=== PATIENT | female | born 1985 | race Caucasian/White ===

== ENCOUNTER 2017-07-18 09:54 | Inpatient (IN) | payer MEDICARE ==
[2017-07-18 11:38] VITALS: BMI 25.8
--- NOTE | 2017-07-18 13:15 | HP ---
COWS - Scale Resting Pulse: 0= [place] 80 or Below Sweatin=Flushed/Facial Moisture Restless Observation: 1= Difficult to Sit Still Pupil Size: 0= Normal to Room Light Bone or Joint Aches: 2= Severe Diffuse Aches Runny Nose/ Eye Tearin= Runny Nose/Eyes GI Upset > 30mins: 2= Nausea/Diarrhea Tremor Observation: 2= Slight Tremor Visible Yawning Observation: 2= >3x During Session Anxiety or Irritability: 2=Irritable/Anxious Goose Flesh Skin: 3=Piloerection COWS Score: 18 CIWA Score - CIWA Score Nausea/Vomitin-Mild Nausea/No Vomiting Muscle Tremors: 4-Moderate,w/Arms Extend Anxiety: 3 Agitation: 4-Moderately Restless Paroxysmal Sweats: 3 Orientation: 0-Oriented Tacttile Disturbances: 0-None Auditory Disturbances: 0-None Visual Disturbances: 0-None Headache: 1-Very Mild CIWA-Ar Total Score: 16 Admission ROS S - HPI Chief Complaint: I am here to detox. Allergies/Adverse Reactions: Allergies Allergy/AdvReac Type Severity Reaction Status Date / Time cabbage Allergy Intermediate Itching Verified 07/18/17 11:58 No Known Drug Allergies Allergy Verified 07/18/17 11:58 History of Present Illness: pt is a 31yr old female with history of alcohol, opioid, and cocaine dependence seeking detox for treatment. pt states she also has a h/o panic attacks. Exam Limitations: No Limitations - Ebola screening Have you traveled outside of the country in the last 21 days: No Have you had contact with anyone from an Ebola affected area: No Have you been sick,other than usual withdrawal symptoms: No Do you have a fever: No - Review of Systems Constitutional: Chills, Diaphoresis, Loss of Appetite, Night Sweats EENT: reports: No Symptoms Reported Respiratory: reports: No Symptoms reported Cardiac: reports: No Symptoms Reported GI: reports: Nausea, Poor Appetite, Poor Fluid Intake, Vomiting : reports: No Symptoms Reported Musculoskeletal: reports: Muscle Pain Integumentary: reports: Flushing, Sweating, Other (harden abscess no s/s infection. Pt coved her track marking with tatoos.) Neuro: reports: Tingling, Tremors Endocrine: reports: Excessive Sweating, Flushing, Intolerance to Cold, Intolerance to Heat Hematology: reports: No Symptoms Reported Psychiatric: reports: No Sypmtoms Reported, Judgement Intact, Mood/Affect Appropiate, Orientated x3, Agitated, Anxious Other Systems: Reviewed and Negative Patient History - Patient Medical History Hx Anemia: No Hx Asthma: No Hx Chronic Obstructive Pulmonary Disease (COPD): No Hx Cancer: No Hx Cardiac Disorders: No Hx Congestive Heart Failure: No Hx Hypertension: No Hx Hypercholesterolemia: No Hx Pacemaker: No HX Cerebrovascular Accident: No Hx Seizures: No Hx Dementia: No Hx Diabetes: No Hx Gastrointestinal Disorders: No Hx Liver Disease: No Hx Genitourinary Disorders: No Hx Sexually Transmitted Disorders: No Hx Renal Disease (ESRD): No Hx Thyroid Disease: No Hx Human Immunodeficiency Virus (HIV): No (negative) Hx Hepatitis C: No (negative) Hx Depression: No Hx Suicide Attempt: No (denies) Hx Bipolar Disorder: No Hx Schizophrenia: No Other Medical History: h/o panic attacks/anxiety - Patient Surgical History Past Surgical History: Yes Hx Abdominal Surgery: Yes (LIPOSUCTION IN 2007) - PPD History Previous Implant?: Yes Documented Results: Negative w/o proof Implanted On Prior R Admission?: No PPD to be Administered?: Yes - Reproductive History Patient : No - Smoking Cessation Smoking history: Never smoked - Substance & Tx. History Hx Alcohol Use: Yes Hx Substance Use: Yes Substance Use Type: Alcohol, Cocaine, Heroin Hx Substance Use Treatment: No - Substances Abused Heroin Route: Injection Frequency: Daily Amount used: 20 BAGS Age of first use: 31 Date of Last Use: 07/17/17 Cocaine Route: Injection Frequency: Daily Amount used: $40 Age of first use: 21 Date of Last Use: 07/17/17 Alcohol Route: Oral Frequency: Daily Amount used: 2 GLASSES VODKA Age of first use: 14 Date of Last Use: 07/18/17 Family Disease History - Family Disease History Family History: Denies Admission Physical Exam BHS - Vital Signs Vital Signs: Vital Signs - 24 hr 07/18/17 11:32 Temperature 95.7 F L Pulse Rate 86 Respiratory 20 Rate Blood Pressure 117/76 - Physical General Appearance: Yes: Appropriately Dressed, Moderate Distress, Intoxicated, Tremorous, Irritable, Sweating, Anxious HEENTM: Yes: Hearing grossly Normal, Normal Voice, Rhinorrhea Respiratory: Yes: Lungs Clear, Normal Breath Sounds, No Respiratory Distress Neck: Yes: No masses,lesions,Nodules Breast: Yes: Within Normal Limits Cardiology: Yes: Regular Rhythm, Regular Rate, S1, S2 Abdominal: Yes: Normal Bowel Sounds, Non Tender, Soft Genitourinary: Yes: Within Normal Limits Back: Yes: Normal Inspection Musculoskeletal: Yes: full range of Motion Extremities: Yes: Normal Capillary Refill, Normal Inspection, Tremors Neurological: Yes: Fully Oriented, Alert, Normal Response Integumentary: Yes: Normal Color, Diaphoresis, Track Diego Lymphatic: Yes: Within Normal Limits - Diagnostic (1) Urinary tract infection Current Visit: Yes Status: Acute Qualifiers: Urinary tract infection type: acute cystitis Hematuria presence: without hematuria Qualified Code(s): N30.00 - Acute cystitis without hematuria (2) Alcohol dependence with uncomplicated withdrawal Current Visit: Yes Status: Chronic (3) Opioid dependence with withdrawal Current Visit: Yes Status: Chronic (4) Panic attack Current Visit: No Status: Suspected Cleared for Admission [facility] - Detox or Rehab [facility] Level of Care: Medically Managed Detox Regimen/Protocol: Methadone/Valium [facility] Breath Alcohol Content Breath Alcohol Content: 0 Urine Drug Screen - Results Drug Screen Negative: No Urine Drug Screen Results: MAME-Cocaine, OPI-Opiates
[2017-07-18] MEDS ORDERED: IBUPROFEN 400 MG TABLET (FP) PO PRN (13:47)
[2017-07-18] MEDS ORDERED: MAGNESIUM HYDROX 2400MG/30ML ORAL SUSPENSION 30 ML CUP PO PRN (13:47)
[2017-07-18] MEDS ORDERED: guaiFENesin/D-METHORPHAN HB 10 ML UNIT-DOSE CUPS PO PRN (13:47)
[2017-07-18] MEDS ORDERED: MAG HYDROX/AL HYDROX/SIMETH 30 ML UNIT-DOSE CUP PO PRN (13:47)
[2017-07-18] MEDS ORDERED: ACETAMINOPHEN 325 MG TABLET (FP) PO PRN (13:47)
[2017-07-18] MEDS ORDERED: diphenhydrAMINE HCL 50 MG CAPSULE PO PRN (13:47)
[2017-07-18] MEDS ORDERED: MENTHOL/PHENOL 1 EACH UD MM PRN (13:47)
[2017-07-18] MEDS ORDERED: MAGNESIUM CITRATE 300 ML BOTTLE PO PRN (13:47)
[2017-07-18] MEDS ORDERED: LOPERAMIDE HCL 2 MG CAPSULE PO PRN (13:47)
[2017-07-18] MEDS ORDERED: P-EPHED 60MG/TRIPROLIDI 2.5MG TABLET PO PRN (13:47)
[2017-07-18] MEDS ORDERED: diazePAM 5 MG TABLET PO ONE (13:59)
[2017-07-18] MEDS ORDERED: METHADONE HCL 10 MG TABLET (FOR DETOX USE ONLY) PO ONE ×2 (14:01→23:00)
[2017-07-18] MEDS: diazePAM 5 MG TABLET PO SCH ×2 (15:20→22:11)
[2017-07-18 17:18] LABS: MCH 28.2 pg (25.7-33.7); MCHC 33.1 g/dl (32.0-36.0); MEAN CELL VOLUME 85.3 fl (80-96); MEAN PLT VOLUME 9.8 fl (7.5-11.1); PLATELET COUNT 328 K/MM3 (134-434); RDW 16.1 % (11.6-15.6); WHITE BLOOD COUNT 12.5 K/mm3 (4.0-10.0)
[2017-07-18 17:25] LABS: PH,URINE 6.5 (5.0-8.0); URINE APPEARANCE CLEAR; URINE BILIRUBIN NEGATIVE (NEGATIVE); URINE BLOOD NEGATIVE (NEGATIVE); URINE COLOR LT. YELLOW; URINE GLUCOSE (UA) NEGATIVE (NEGATIVE); URINE KETONE NEGATIVE (NEGATIVE); URINE LEUK ESTERASE NEGATIVE (NEGATIVE); URINE NITRITE NEGATIVE (NEGATIVE); URINE PROTEIN TRACE (NEGATIVE); URINE UROBILINOGEN 0.2 mg/dL (0.2-1.0)
[2017-07-18 17:40] LABS: ALK PHOS 58 U/L (45-117); ANION GAP 9 (8-16); BILIRUBIN,TOTAL 0.4 mg/dL (0.2-1.0); CALCIUM 9.3 mg/dL (8.5-10.1); CO2 26 mmol/L (21-32); CREATININE 0.8 mg/dL (0.55-1.02); GLUCOSE,RANDOM 109 mg/dL (74-106); SGOT/AST 13 U/L (15-37); SGPT/ALT 19 U/L (12-78); TOT PROT 7.5 g/dl (6.4-8.2)
[2017-07-18] MEDS: THIAMINE HCL 100 MG TABLET (FP) PO SCH (22:10)
[2017-07-18] MEDS: diazePAM 5 MG TABLET PO PRN (22:11)
[2017-07-19] MEDS: diazePAM 5 MG TABLET PO SCH ×3 (05:38→22:04)
[2017-07-19] MEDS ORDERED: ONDANSETRON *ODT* 4 MG TABLET SL PRN (08:55)
[2017-07-19] MEDS: hydrOXYzine PAMOATE 50 MG CAPSULE (FP) PO PRN ×3 (09:50→22:03)
[2017-07-19] MEDS: PRENATAL VITAMINS W/ FOLIC ACID TABLET (FP) PO SCH (09:50)
[2017-07-19] MEDS ORDERED: METHADONE HCL 10 MG TABLET (FOR DETOX USE ONLY) PO SCH (10:00)
--- NOTE | 2017-07-19 10:32 | EKG ---
Test Reason : Blood Pressure : / mmHG Vent. Rate : 086 BPM Atrial Rate : 086 BPM P-R Int : 146 ms QRS Dur : 084 ms QT Int : 428 ms P-R-T Axes : 051 060 052 degrees QTc Int : 512 ms NORMAL SINUS RHYTHM PROLONGED QT ABNORMAL ECG NO PREVIOUS ECGS AVAILABLE Confirmed by ALECIA SANDRA MD ([id number]) on 07/19/2017 10:32:05 AM Referred By: Confirmed By:ALEICA SANDRA MD
--- NOTE | 2017-07-19 11:44 | PN ---
[facility] CIWA - CIWA Score Nausea/Vomitin-No Nausea/No Vomiting Muscle Tremors: 4-Moderate,w/Arms Extend Anxiety: 4-Mod. Anxious/Guarded Agitation: 4-Moderately Restless Paroxysmal Sweats: 3 Orientation: 0-Oriented Tacttile Disturbances: 0-None Auditory Disturbances: 0-None Visual Disturbances: 0-None Headache: 0-None Present CIWA-Ar Total Score: 15 S COWS - Scale Resting Pulse: 1= [place] 81-100 Sweatin=Flushed/Facial Moisture Restless Observation: 1= Difficult to Sit Still Pupil Size: 0= Normal to Room Light Bone or Joint Aches: 2= Severe Diffuse Aches Runny Nose/ Eye Tearin= Runny Nose/Eyes GI Upset > 30mins: 1= Stomach Cramp Tremor Observation of Outstretched Hands: 2= Slight Tremor Visible Yawning Observation: 2= >3x During Session Anxiety or Irritability: 2=Irritable/Anxious Goose Flesh Skin: 3=Piloerection COWS Score: 18 [facility] Progress Note (SOAP) Subjective: irritable agitation sweats chills body aches restless I have a UTI Objective: 07/19/17 11:43 Vital Signs Temperature 97.7 F 07/19/17 10:00 Pulse Rate 88 07/19/17 10:00 Respiratory Rate 18 07/19/17 10:00 Blood Pressure 135/95 07/19/17 10:00 O2 Sat by Pulse Oximetry (%) Laboratory Tests 07/18/17 07/18/17 07/18/17 14:00 14:00 14:00 WBC 12.5 H RBC 3.77 Hgb 10.6 L D Hct 32.2 L D MCV 85.3 MCH 28.2 MCHC 33.1 RDW 16.1 H D Plt Count 328 MPV 9.8 Sodium 138 Potassium 3.7 Chloride 103 Carbon Dioxide 26 Anion Gap 9 BUN 17 D Creatinine 0.8 Creat Clearance w eGFR > 60 Random Glucose 109 H D Calcium 9.3 Total Bilirubin 0.4 AST 13 L D ALT 19 D Alkaline Phosphatase 58 Total Protein 7.5 Albumin 4.0 Urine Color Lt. yellow Urine Appearance Clear Urine pH 6.5 D Ur Specific [place] >= 1.030 H Urine Protein Trace H Urine Glucose (UA) Negative Urine Ketones Negative Urine Blood Negative Urine Nitrite Negative Urine Bilirubin Negative Urine Urobilinogen 0.2 Ur Leukocyte Esterase Negative RPR Titer 07/18/17 14:00 WBC RBC Hgb Hct MCV MCH MCHC RDW Plt Count MPV Sodium Potassium Chloride Carbon Dioxide Anion Gap BUN Creatinine Creat Clearance w eGFR Random Glucose Calcium Total Bilirubin AST ALT Alkaline Phosphatase Total Protein Albumin Urine Color Urine Appearance Urine pH Ur Specific [place] Urine Protein Urine Glucose (UA) Urine Ketones Urine Blood Urine Nitrite Urine Bilirubin Urine Urobilinogen Ur Leukocyte Esterase RPR Titer Nonreactive awake/alert lying in bed no acute distress Assessment: 07/19/17 11:44 withdrawal sx Plan: continue detox increase fluids bactrim ds q daily x 7 days for uti
[2017-07-19] MEDS: SULFAMETHOXAZOLE/TRIMETHOPRIM 800MG/160MG D.S. TABLET PO SCH (13:10)
--- NOTE | 2017-07-19 14:04 | CONSULT ---
[facility] Psychiatric Consult - Data Date of interview: 07/19/17 Admission source: [facility] Identifying data: Patient is approached at bedside for psychiatric interview.She refused.Nursing staff is made aware.
--- NOTE | 2017-07-19 15:20 | PN ---
S Progress Note Note: pt refused to complete detox; pt states I am not ready and need to leave now. Pt insisted to leave and signed out AMA.
--- NOTE | 2017-07-19 15:21 | DS ---
[facility] Detox Discharge Summary Admission Date: 07/18/17 - History Present History: Alcohol Dependence, Opioid Dependence - Physical Exam Results Vital Signs: Vital Signs Temperature 97.9 F 07/19/17 14:23 Pulse Rate 87 07/19/17 14:23 Respiratory Rate 20 07/19/17 14:23 Blood Pressure 107/54 07/19/17 14:23 O2 Sat by Pulse Oximetry (%) - Treatment Hospital Course: Discharged Condition Good - Medication Discharge Medications: Ambulatory Orders NK [No Known Home Medication] 07/18/17 - Diagnosis (1) Urinary tract infection Current Visit: Yes Status: Acute Qualifiers: Urinary tract infection type: acute cystitis Hematuria presence: without hematuria Qualified Code(s): N30.00 - Acute cystitis without hematuria (2) Alcohol dependence with uncomplicated withdrawal Current Visit: Yes Status: Chronic (3) Opioid dependence with withdrawal Current Visit: Yes Status: Chronic (4) Panic attack Current Visit: No Status: Suspected - AMA Did Patient Leave Against Medical Advice: Yes (I want to go home.)
[2017-07-19] MEDS ORDERED: CYCLOBENZAPRINE HCL 10 MG TABLET (FP) PO PRN (15:54)
[2017-07-19] MEDS ORDERED: IBUPROFEN 400 MG TABLET (FP) PO PRN (15:54)
[2017-07-19] MEDS: diazePAM 5 MG TABLET PO PRN (22:04)
[2017-07-19] MEDS: THIAMINE HCL 100 MG TABLET (FP) PO SCH (22:04)
[2017-07-20] MEDS: SULFAMETHOXAZOLE/TRIMETHOPRIM 800MG/160MG D.S. TABLET PO SCH (09:12)
[2017-07-20] MEDS: PRENATAL VITAMINS W/ FOLIC ACID TABLET (FP) PO SCH (09:12)
--- NOTE | 2017-07-20 09:23 | PN ---
S CIWA - CIWA Score Nausea/Vomitin Muscle Tremors: 3 Anxiety: 2 Agitation: 2 Paroxysmal Sweats: 1-Minimal Palms Moist Orientation: 0-Oriented Tacttile Disturbances: 1-Very Mild Itch/Numbness Auditory Disturbances: 1-Very Mild Visual Disturbances: 1-Very Mild Sensitivity Headache: 2-Mild CIWA-Ar Total Score: 16 BHS COWS - Scale Resting Pulse: 1= [place] 81-100 Sweatin= Chills/Flushing Restless Observation: 3= Extraneous Movement Pupil Size: 1= Pupils >than Normal Bone or Joint Aches: 2= Severe Diffuse Aches Runny Nose/ Eye Tearin= Runny Nose/Eyes GI Upset > 30mins: 2= Nausea/Diarrhea Tremor Observation of Outstretched Hands: 2= Slight Tremor Visible Yawning Observation: 1= 1-2x During Session Anxiety or Irritability: 2=Irritable/Anxious Goose Flesh Skin: 0=Smooth Skin COWS Score: 17 S Progress Note (SOAP) Subjective: ALERT,IRRITABLE,ANXIOUS,INTERRUPTED SLEEP,PAIN IN THE BODY AND BACK Objective: 07/20/17 09:22 Vital Signs Temperature 97.9 F 07/20/17 06:55 Pulse Rate 84 07/20/17 06:55 Respiratory Rate 18 07/20/17 06:55 Blood Pressure 114/64 07/20/17 06:55 O2 Sat by Pulse Oximetry (%) Laboratory Last Values WBC 12.5 K/mm3 (4.0-10.0) H 07/18/17 14:00 RBC 3.77 M/mm3 (3.60-5.2) 07/18/17 14:00 Hgb 10.6 GM/dL (10.7-15.3) L D 07/18/17 14:00 Hct 32.2 % (32.4-45.2) L D 07/18/17 14:00 MCV 85.3 fl (80-96) 07/18/17 14:00 MCH 28.2 pg (25.7-33.7) 07/18/17 14:00 MCHC 33.1 g/dl (32.0-36.0) 07/18/17 14:00 RDW 16.1 % (11.6-15.6) H D 07/18/17 14:00 Plt Count 328 K/MM3 (134-434) 07/18/17 14:00 MPV 9.8 fl (7.5-11.1) 07/18/17 14:00 Sodium 138 mmol/L (136-145) 07/18/17 14:00 Potassium 3.7 mmol/L (3.5-5.1) 07/18/17 14:00 Chloride 103 mmol/L (98-107) 07/18/17 14:00 Carbon Dioxide 26 mmol/L (21-32) 07/18/17 14:00 Anion Gap 9 (8-16) 07/18/17 14:00 BUN 17 mg/dL (7-18) D 07/18/17 14:00 Creatinine 0.8 mg/dL (0.55-1.02) 07/18/17 14:00 Creat Clearance w eGFR > 60 (>60) 07/18/17 14:00 Random Glucose 109 mg/dL (74-106) H D 07/18/17 14:00 Calcium 9.3 mg/dL (8.5-10.1) 07/18/17 14:00 Total Bilirubin 0.4 mg/dL (0.2-1.0) 07/18/17 14:00 AST 13 U/L (15-37) L D 07/18/17 14:00 ALT 19 U/L (12-78) D 07/18/17 14:00 Alkaline Phosphatase 58 U/L (45-117) 07/18/17 14:00 Total Protein 7.5 g/dl (6.4-8.2) 07/18/17 14:00 Albumin 4.0 g/dl (3.4-5.0) 07/18/17 14:00 Urine Color Lt. yellow 07/18/17 14:00 Urine Appearance Clear 07/18/17 14:00 Urine pH 6.5 (5.0-8.0) D 07/18/17 14:00 Ur Specific [place] >= 1.030 (1.005-1.025) H 07/18/17 14:00 Urine Protein Trace (NEGATIVE) H 07/18/17 14:00 Urine Glucose (UA) Negative (NEGATIVE) 07/18/17 14:00 Urine Ketones Negative (NEGATIVE) 07/18/17 14:00 Urine Blood Negative (NEGATIVE) 07/18/17 14:00 Urine Nitrite Negative (NEGATIVE) 07/18/17 14:00 Urine Bilirubin Negative (NEGATIVE) 07/18/17 14:00 Urine Urobilinogen 0.2 mg/dL (0.2-1.0) 07/18/17 14:00 Ur Leukocyte Esterase Negative (NEGATIVE) 07/18/17 14:00 RPR Titer Nonreactive (NONREACTIVE) 07/18/17 14:00 Assessment: 07/20/17 09:23 WITHDRAWAL SYMPTOM Plan: CONTINUE DETOX
--- NOTE | 2017-07-20 09:26 | PN ---
S Progress Note Note: PATIENT DID NOT WANT TO COMPLETE TREATMENT,SEEN BY COUNSELOR,SIGNED RELEASE AMA
--- NOTE | 2017-07-20 09:32 | DS ---
[facility] Detox Discharge Summary Admission Date: 07/18/17 Discharge Date: 07/20/17 - History Present History: Alcohol Dependence, Cocaine Dependence, Opioid Dependence Additional Comments: PATIENT DID NOT WANT TO COMPLETE TREATMENT,SIGNED RELEASE AMA,SEEN BY COUNSELOR Pertinent Past History: UTI PANIC ATTACK - Physical Exam Results Vital Signs: Vital Signs Temperature 97.9 F 07/20/17 06:55 Pulse Rate 84 07/20/17 06:55 Respiratory Rate 18 07/20/17 06:55 Blood Pressure 114/64 07/20/17 06:55 O2 Sat by Pulse Oximetry (%) Pertinent Admission Physical Exam Findings: WITHDRAWAL SYMPTOM - Medication Discharge Medications: Ambulatory Orders Sulfamethoxazole/Trimethoprim [Bactrim DS -] 1 each PO DAILY #7 tablet 07/19/17 - Diagnosis (1) Opioid dependence with withdrawal Current Visit: Yes Status: Chronic (2) Urinary tract infection Current Visit: Yes Status: Acute Qualifiers: Urinary tract infection type: acute cystitis Hematuria presence: without hematuria Qualified Code(s): N30.00 - Acute cystitis without hematuria (3) Alcohol dependence with uncomplicated withdrawal Current Visit: Yes Status: Chronic (4) Panic attack Current Visit: No Status: Suspected - AMA Did Patient Leave Against Medical Advice: Yes
[2017-07-20 09:59] VITALS: BP 145/78; PULSE 95; TEMP 98.2
[2017-07-20] MEDS ORDERED: diazePAM 5 MG TABLET PO SCH (10:00)
[2017-07-20] MEDS ORDERED: METHADONE HCL 5 MG TABLET (FOR DETOX USE ONLY) PO SCH (10:00)
[2017-07-22] MEDS ORDERED: diazePAM 5 MG TABLET PO SCH (10:00)
[2017-07-22] MEDS ORDERED: METHADONE HCL 10 MG TABLET (FOR DETOX USE ONLY) PO SCH (10:00)
[2017-07-23] MEDS ORDERED: METHADONE HCL 5 MG TABLET (FOR DETOX USE ONLY) PO SCH (06:00)
== END 2017-07-20 09:17 | disposition left against medical advice (07) | DRG 770 ==
LOC: YASAS 09:54 → Y6N 13:50
PROVIDERS: ADMIT Internal Medicine; ATTEND Internal Medicine
PROC: HZ2ZZZZ Detoxification Services for Substance Abuse Treatment (ICD-10-PCS; principal; 2017-07-18)
DX: F11.23 Opioid dependence with withdrawal (principal); F10.230 Alcohol dependence with withdrawal, uncomplicated; F41.0 Panic disorder [episodic paroxysmal anxiety]; N30.00 Acute cystitis without hematuria; Z91.018 Allergy to other foods
CPT/HCPCS: 36415; 80053; 81003; 85027; 86593; 93005; 93010

== ENCOUNTER 2017-11-19 10:29 | Inpatient (IN) | payer SELFPAY ==
[2017-11-19 11:45] VITALS: BMI 23.3
--- NOTE | 2017-11-19 14:54 | HP ---
COWS - Scale Resting Pulse: 2= [place] 101-120 Sweatin=Flushed/Facial Moisture Restless Observation: 1= Difficult to Sit Still Pupil Size: 0= Normal to Room Light Bone or Joint Aches: 2= Severe Diffuse Aches Runny Nose/ Eye Tearin= Runny Nose/Eyes GI Upset > 30mins: 2= Nausea/Diarrhea Tremor Observation: 2= Slight Tremor Visible Yawning Observation: 2= >3x During Session Anxiety or Irritability: 2=Irritable/Anxious Goose Flesh Skin: 3=Piloerection COWS Score: 20 CIWA Score - CIWA Score Nausea/Vomitin-Mild Nausea/No Vomiting Muscle Tremors: 4-Moderate,w/Arms Extend Anxiety: 4-Mod. Anxious/Guarded Agitation: 4-Moderately Restless Paroxysmal Sweats: 3 Orientation: 0-Oriented Tacttile Disturbances: 0-None Auditory Disturbances: 0-None Visual Disturbances: 0-None Headache: 2-Mild CIWA-Ar Total Score: 18 Admission ROS BHS - HPI Chief Complaint: I am here for detox and hopefully for rehab. Allergies/Adverse Reactions: Allergies Allergy/AdvReac Type Severity Reaction Status Date / Time cabbage Allergy Intermediate Itching Verified 11/19/17 12:47 peanut Allergy Intermediate Swelling Verified 11/19/17 12:47 No Known Drug Allergies Allergy Verified 07/18/17 11:58 History of Present Illness: Pt is a 31yr old female with a history of alcohol and heroin dependence seeking detox for treatment. Exam Limitations: No Limitations - Ebola screening Have you traveled outside of the country in the last 21 days: No Have you had contact with anyone from an Ebola affected area: No Have you been sick,other than usual withdrawal symptoms: No - Review of Systems Constitutional: Chills, Diaphoresis, Night Sweats, Changes in sleep, Unintentional Wgt. Loss EENT: reports: Tearing, Nose Congestion Respiratory: reports: No Symptoms reported Cardiac: reports: No Symptoms Reported, Lightheadedness GI: reports: Constipated, Poor Fluid Intake, Indigestion : reports: No Symptoms Reported Musculoskeletal: reports: Back Pain, Joint Pain, Muscle Pain Integumentary: reports: Flushing, Sweating Neuro: reports: Tingling, Tremors Endocrine: reports: Intolerance to Heat, Increased Hunger Hematology: reports: No Symptoms Reported Psychiatric: reports: Judgement Intact, Mood/Affect Appropiate, Orientated x3, Agitated, Anxious Other Systems: Reviewed and Negative Patient History - Patient Medical History Hx Anemia: No Hx Asthma: No Hx Chronic Obstructive Pulmonary Disease (COPD): No Hx Cancer: No Hx Cardiac Disorders: No Hx Congestive Heart Failure: No Hx Hypertension: No Hx Hypercholesterolemia: No Hx Pacemaker: No HX Cerebrovascular Accident: No Hx Seizures: No Hx Dementia: No Hx Diabetes: No Hx Gastrointestinal Disorders: Yes (ACID REFLUX) Hx Liver Disease: No Hx Genitourinary Disorders: No Hx Sexually Transmitted Disorders: No Hx Renal Disease (ESRD): No Hx Thyroid Disease: No Hx Human Immunodeficiency Virus (HIV): No (negative) Hx Hepatitis C: No (negative) Hx Depression: Yes Hx Suicide Attempt: No Hx Bipolar Disorder: No Hx Schizophrenia: No - Patient Surgical History Past Surgical History: Yes Hx Abdominal Surgery: Yes (LIPOSUCTION IN 2004 AND 2007) - PPD History Previous Implant?: Yes Documented Results: Negative w/o proof Implanted On Prior [facility] Admission?: Yes PPD to be Administered?: Yes - Reproductive History Patient is a Female of Child Bearing Age (11 -55 yrs old): Yes Last Menstrual Period: 06/12/17 Patient : No - Smoking Cessation Smoking history: Never smoked - Substance & Tx. History Hx Alcohol Use: Yes Hx Substance Use: Yes Substance Use Type: Alcohol, Cocaine, Heroin, Opiates Hx Substance Use Treatment: No - Substances Abused Heroin Route: Injection Frequency: Daily Amount used: 20 BAGS Age of first use: 30 Date of Last Use: 11/18/17 Cocaine Route: Injection Frequency: Daily Amount used: $40 Age of first use: 18 Date of Last Use: 11/18/17 Alcohol Route: Oral Frequency: Daily Amount used: 2-3 GLASSES Age of first use: 18 Date of Last Use: 11/19/17 Alprazolam (Xanax) Route: Oral Frequency: 1-3 times last 30 days Amount used: 4MG Age of first use: 14 Date of Last Use: 11/17/17 Family Disease History - Family Disease History Family History: Denies Admission Physical Exam BHS - Vital Signs Vital Signs: Vital Signs - 24 hr 11/19/17 11:43 Temperature 98.1 F Pulse Rate 107 H Respiratory 18 Rate Blood Pressure 137/86 - Physical General Appearance: Yes: Appropriately Dressed, Moderate Distress, Tremorous, Irritable, Sweating, Anxious HEENTM: Yes: Hearing grossly Normal, Normal Voice, Nasal Congestion, Rhinorrhea Respiratory: Yes: Lungs Clear, Normal Breath Sounds, No Respiratory Distress Neck: Yes: No masses,lesions,Nodules Breast: Yes: Within Normal Limits Cardiology: Yes: Regular Rhythm, Regular Rate, S1, S2 Abdominal: Yes: Normal Bowel Sounds, Non Tender, Soft Genitourinary: Yes: Within Normal Limits Back: Yes: Normal Inspection Musculoskeletal: Yes: Back pain, Muscle Pain Extremities: Yes: Normal Capillary Refill, Normal Inspection, Non-Tender, Tremors Neurological: Yes: Fully Oriented, Alert, Normal Response Integumentary: Yes: Normal Color, Diaphoresis, Track Diego Lymphatic: Yes: Within Normal Limits - Diagnostic (1) Constipation Current Visit: No Status: Chronic Qualifiers: Constipation type: unspecified constipation type Qualified Code(s): K59.00 - Constipation, unspecified (2) Urinary tract infection Current Visit: No Status: Chronic Qualifiers: Encounter type: initial encounter (3) Alcohol dependence with uncomplicated withdrawal Current Visit: Yes Status: Chronic (4) Opioid dependence with withdrawal Current Visit: Yes Status: Chronic (5) Panic attack Current Visit: No Status: Suspected Cleared for Admission [facility] - Detox or Rehab [facility] Level of Care: Medically Managed Detox Regimen/Protocol: Methadone/Valium [facility] Breath Alcohol Content Breath Alcohol Content: 0.070 Urine Pregancy Test - Result Urine Test Results: Negative- NO Line Present Urine Drug Screen - Results Drug Screen Negative: No Urine Drug Screen Results: MAME-Cocaine, OPI-Opiates, BZO-Benzodiazepines, TCA- Tricyclic Antidepress, OXY-Oxycodone
[2017-11-19] MEDS ORDERED: MAG HYDROX/AL HYDROX/SIMETH 30 ML UNIT-DOSE CUP PO PRN (15:03)
[2017-11-19] MEDS ORDERED: MAGNESIUM HYDROX 2400MG/30ML ORAL SUSPENSION 30 ML CUP PO PRN (15:03)
[2017-11-19] MEDS ORDERED: guaiFENesin/D-METHORPHAN HB 10 ML UNIT-DOSE CUPS PO PRN (15:03)
[2017-11-19] MEDS ORDERED: ACETAMINOPHEN 325 MG TABLET (FP) PO PRN (15:03)
[2017-11-19] MEDS ORDERED: P-EPHED 60MG/TRIPROLIDI 2.5MG TABLET PO PRN (15:03)
[2017-11-19] MEDS ORDERED: MAGNESIUM CITRATE 300 ML BOTTLE PO PRN (15:03)
[2017-11-19] MEDS ORDERED: MENTHOL/PHENOL 1 EACH UD MM PRN (15:03)
[2017-11-19] MEDS ORDERED: NICOTINE POLACRILEX 4 MG GUM BC PRN (15:03)
[2017-11-19] MEDS ORDERED: LOPERAMIDE HCL 2 MG CAPSULE PO PRN (15:03)
[2017-11-19] MEDS ORDERED: IBUPROFEN 400 MG TABLET (FP) PO PRN (15:03)
[2017-11-19] MEDS ORDERED: hydrOXYzine PAMOATE 50 MG CAPSULE (FP) PO PRN (15:03)
[2017-11-19] MEDS ORDERED: diazePAM 5 MG TABLET PO ONE (15:30)
[2017-11-19] MEDS ORDERED: METHADONE HCL 10 MG TABLET (FOR DETOX USE ONLY) PO ONE ×2 (15:30→23:00)
[2017-11-19] MEDS ORDERED: cloNIDine HCL 0.1 MG TABLET PO ONE (16:15)
[2017-11-19] MEDS ORDERED: METHADONE HCL 10 MG TABLET (FOR DETOX USE ONLY) ONE (17:55)
[2017-11-19 19:15] LABS: URINE APPEARANCE CLOUDY; URINE BILIRUBIN NEGATIVE (NEGATIVE); URINE BLOOD NEGATIVE (NEGATIVE); URINE COLOR DKYELLOW; URINE GLUCOSE (UA) NEGATIVE (NEGATIVE); URINE KETONE NEGATIVE (NEGATIVE); URINE NITRITE NEGATIVE (NEGATIVE); URINE UROBILINOGEN 4.0 E.U/dl mg/dL (0.2-1.0)
[2017-11-19 19:53] LABS: URINE LEUK ESTERASE 1+ (NEGATIVE); URINE PROTEIN 1+ (NEGATIVE)
[2017-11-19 21:39] LABS: URINE BACTERIA RARE /hpf (NONE SEEN); URINE MUCUS FEW; URINE RBC 5 /hpf (0-3); URINE WBC 7 /hpf (3-5)
[2017-11-19] MEDS: cloNIDine HCL 0.1 MG TABLET PO SCH (22:17)
[2017-11-19] MEDS: diazePAM 5 MG TABLET PO SCH (22:17)
[2017-11-19] MEDS: THIAMINE HCL 100 MG TABLET (FP) PO SCH (22:17)
[2017-11-19] MEDS: SULFAMETHOXAZOLE/TRIMETHOPRIM 800MG/160MG D.S. TABLET PO SCH (22:17)
[2017-11-19] MEDS: BACITRACIN 0.9 GM PACKET TP SCH (22:17)
[2017-11-19] MEDS: CYCLOBENZAPRINE HCL 10 MG TABLET (FP) PO PRN (22:17)
[2017-11-19 22:55] LABS: URINE LEUK ESTERASE Negative (NEGATIVE)
[2017-11-20] MEDS: diazePAM 5 MG TABLET PO SCH ×3 (06:33→22:31)
[2017-11-20] MEDS ORDERED: PRENATAL VITAMINS W/ FOLIC ACID TABLET (FP) PO SCH (10:00)
[2017-11-20] MEDS ORDERED: NICOTINE 21 MG/24 HOURS TOPICAL PATCH TD SCH (10:00)
[2017-11-20] MEDS ORDERED: METHADONE HCL 10 MG TABLET (FOR DETOX USE ONLY) PO SCH (10:00)
[2017-11-20 10:07] LABS: MCH 23.1 pg (25.7-33.7); MCHC 30.1 g/dl (32.0-36.0); MEAN CELL VOLUME 76.5 fl (80-96); MEAN PLT VOLUME 10.1 fl (7.5-11.1); PLATELET COUNT 368 K/MM3 (134-434); RDW 16.5 % (11.6-15.6); WHITE BLOOD COUNT 9.3 K/mm3 (4.0-10.0)
--- NOTE | 2017-11-20 10:08 | EKG ---
Test Reason : Blood Pressure : / mmHG Vent. Rate : 088 BPM Atrial Rate : 088 BPM P-R Int : 158 ms QRS Dur : 082 ms QT Int : 398 ms P-R-T Axes : 051 056 040 degrees QTc Int : 481 ms NORMAL SINUS RHYTHM POSSIBLE ANTERIOR INFARCT , AGE UNDETERMINED ABNORMAL ECG WHEN COMPARED WITH ECG OF 18-JUL-2017 14:24, NO SIGNIFICANT CHANGE WAS FOUND Confirmed by JENNIFER RUDD MD ([id number]) on 11/20/2017 10:08:31 AM Referred By: Confirmed By:JENNIFER RUDD MD
[2017-11-20 10:34] LABS: ALBUMIN 3.7 g/dl (3.4-5.0); ALK PHOS 104 U/L (45-117); ANION GAP 10 (8-16); BILIRUBIN,TOTAL 0.5 mg/dL (0.2-1.0); CALCIUM 8.8 mg/dL (8.5-10.1); CO2 25 mmol/L (21-32); GLUCOSE,RANDOM 98 mg/dL (74-106); SGPT/ALT 335 U/L (12-78); TOT PROT 8.3 g/dl (6.4-8.2)
[2017-11-20] MEDS: cloNIDine HCL 0.1 MG TABLET PO SCH ×2 (10:46→22:30)
[2017-11-20] MEDS: SULFAMETHOXAZOLE/TRIMETHOPRIM 800MG/160MG D.S. TABLET PO SCH ×2 (10:46→22:25)
[2017-11-20] MEDS: BACITRACIN 0.9 GM PACKET TP SCH ×2 (10:46→22:25)
[2017-11-20] MEDS: diazePAM 5 MG TABLET PO PRN (10:46)
--- NOTE | 2017-11-20 10:52 | PN ---
[facility] CIWA - CIWA Score Nausea/Vomitin-No Nausea/No Vomiting Muscle Tremors: 4-Moderate,w/Arms Extend Anxiety: 3 Agitation: 3 Paroxysmal Sweats: 3 Orientation: 0-Oriented Tacttile Disturbances: 0-None Auditory Disturbances: 0-None Visual Disturbances: 0-None Headache: 1-Very Mild CIWA-Ar Total Score: 14 S COWS - Scale Resting Pulse: 0= [place] 80 or Below Sweatin=Flushed/Facial Moisture Restless Observation: 1= Difficult to Sit Still Pupil Size: 0= Normal to Room Light Bone or Joint Aches: 2= Severe Diffuse Aches Runny Nose/ Eye Tearin= Runny Nose/Eyes GI Upset > 30mins: 2= Nausea/Diarrhea Tremor Observation of Outstretched Hands: 2= Slight Tremor Visible Yawning Observation: 2= >3x During Session Anxiety or Irritability: 2=Irritable/Anxious Goose Flesh Skin: 3=Piloerection COWS Score: 18 S Progress Note (SOAP) Subjective: shakes sweats interrupted sleep agitation body aches nausea Objective: 11/20/17 10:53 Vital Signs Temperature 97.3 F L 11/20/17 06:18 Pulse Rate 66 11/20/17 06:18 Respiratory Rate 16 11/20/17 06:18 Blood Pressure 91/50 11/20/17 06:18 O2 Sat by Pulse Oximetry (%) Laboratory Tests 11/19/17 11/20/17 16:00 05:45 WBC 9.3 RBC 4.09 Hgb 9.4 L D Hct 31.3 L MCV 76.5 L MCH 23.1 L MCHC 30.1 L RDW 16.5 H Plt Count 368 MPV 10.1 Urine Color Dkyellow Urine Appearance Cloudy Urine pH 6.0 Ur Specific [place] 1.024 Urine Protein 1+ H Urine Glucose (UA) Negative Urine Ketones Negative Urine Blood Negative Urine Nitrite Negative Urine Bilirubin Negative Urine Urobilinogen 4.0 e.u/dl H Ur Leukocyte Esterase Negative Urine WBC (Auto) 7 Urine RBC (Auto) 5 Ur Epithelial Cells Moderate Urine Bacteria Rare Urine Mucus Few labs pending aaox3 ambulating no acute distress Assessment: 11/20/17 10:54 withdrawal sx Plan: continue detox increase fluids labs pending
[2017-11-20 10:59] LABS: SGOT/AST 343 U/L (15-37)
--- NOTE | 2017-11-20 11:27 | CONSULT ---
[facility] Psychiatric Consult - Data Date of interview: 11/19/17 Admission source: [facility] Identifying data: This is 31 years old female with psychiatric hospitalization history inbtoxicated with: Alcohol, Opioids, history of Cocaine and Xanax abuse as well Substance Abuse History: - Smoking Cessation. Smoking history: Never smoked. - Substance & Tx. History. Hx Alcohol Use: Yes. Hx Substance Use: Yes. Substance Use Type: Alcohol, Cocaine, Heroin, Opiates. Hx Substance Use Treatment: No. - Substances Abused. Heroin. Route: Injection. Frequency: Daily. Amount used: 20 BAGS. Age of first use: 30. Date of Last Use: . Cocaine. Route: Injection. Frequency: Daily. Amount used: $40. Age of first use: 18. Date of Last Use: 11/18/17. Alcohol. Route: Oral. Frequency: Daily. Amount used: 2-3 GLASSES. Age of first use: 18. Date of Last Use: 11/19/17. Alprazolam (Xanax). Route: Oral. Frequency: 1-3 times last 30 days. Amount used: 4MG. Age of first use: 14. Date of Last Use: 11/17 Medical History: UTI history Psychiatric History: Patioent reports anxiety and panic attack history, reports no medicastions taking prior to admission, reports recent psychiatric admission on 2012 for safety at [facility] Physical/Sexual Abuse/Trauma History: Denies Additional Comment: Observation. Detox Unit Care Protocol Mental Status Exam - Mental Status Exam Alert and Oriented to: Person Cognitive Function: Fair Patient Appearance: Unkempt Mood: Sad Affect: Flat Patient Behavior: Sedated Speech Pattern: Delayed Voice Loudness: Mildly Soft/Quiet Thought Process: Circumstantial Thought Disorder: Being Controlled Suicidal Ideation: Denies Insight/Judgement: Fair Sleep: Difficulty falling asleep Appetite: Weight loss Muscle strength/Tone: Mild Hypotonicity Gait/Station: Shuffling Additional Comments: Observation. Detox Unit Care Protocol Psychiatric Findings - Problem List ([place] 1, 2,3) (1) Drug-induced mood disorder Current Visit: Yes Status: Acute (2) Alcohol dependence with uncomplicated withdrawal Current Visit: Yes Status: Chronic (3) Opioid dependence with withdrawal Current Visit: Yes Status: Chronic (4) Panic attack Current Visit: No Status: Suspected - Initial Treatment Plan Initial Treatment Plan: Observation. Detox Unit Care Protocol
[2017-11-20 22:25] VITALS: TEMP 97.9
[2017-11-20] MEDS: THIAMINE HCL 100 MG TABLET (FP) PO SCH (22:25)
[2017-11-20] MEDS: CYCLOBENZAPRINE HCL 10 MG TABLET (FP) PO PRN (22:30)
[2017-11-21 06:34] VITALS: BP 105/51; PULSE 64
[2017-11-21] MEDS ORDERED: LIDOCAINE 5% TOPICAL PATCH TP ONE (08:09)
[2017-11-21] MEDS: diazePAM 5 MG TABLET PO PRN (08:15)
[2017-11-21] MEDS ORDERED: ZOLPIDEM TARTRATE 10 MG TABLET (PARK CARE ONLY) PO PRN (08:27)
[2017-11-21] MEDS ORDERED: diazePAM 5 MG TABLET PO SCH (10:00)
[2017-11-21] MEDS ORDERED: METHADONE HCL 5 MG TABLET (FOR DETOX USE ONLY) PO SCH (10:00)
--- NOTE | 2017-11-21 11:38 | PN ---
S Progress Note Note: Pt states I dont care to tell you why I am leaving i am signing out. pt signed out AMA.
--- NOTE | 2017-11-21 11:39 | DS ---
[facility] Detox Discharge Summary Admission Date: 11/19/17 - History Present History: Alcohol Dependence, Opioid Dependence - Physical Exam Results Vital Signs: Vital Signs Temperature 97.9 F 11/21/17 06:33 Pulse Rate 64 11/21/17 06:33 Respiratory Rate 16 11/21/17 06:33 Blood Pressure 105/51 11/21/17 06:33 O2 Sat by Pulse Oximetry (%) - Medication Discharge Medications: Ambulatory Orders Quetiapine Fumarate [Seroquel] 100 mg PO HS #30 tablet 11/21/17 Zolpidem Tartrate [Ambien] 0 mg PO HS #14 tablet MDD 10 11/21/17 Zolpidem Tartrate [Ambien] 10 mg PO HS PRN #14 tablet MDD 10 11/21/17 - Diagnosis (1) Constipation Status: Chronic Qualifiers: Constipation type: unspecified constipation type Qualified Code(s): K59.00 - Constipation, unspecified (2) Urinary tract infection Status: Chronic Qualifiers: Encounter type: initial encounter (3) Alcohol dependence with uncomplicated withdrawal Status: Chronic (4) Opioid dependence with withdrawal Status: Chronic (5) Panic attack Status: Suspected - AMA Did Patient Leave Against Medical Advice: Yes
[2017-11-21] MEDS ORDERED: QUEtiapine FUMARATE 100 MG TABLET (FP) PO SCH (22:00)
[2017-11-21] MEDS ORDERED: LIDOCAINE PATCH REMOVAL MC SCH (22:00)
[2017-11-22] MEDS ORDERED: LIDOCAINE 5% TOPICAL PATCH TP SCH (10:00)
[2017-11-23] MEDS ORDERED: METHADONE HCL 10 MG TABLET (FOR DETOX USE ONLY) PO SCH (10:00)
[2017-11-23] MEDS ORDERED: diazePAM 5 MG TABLET PO SCH (10:00)
[2017-11-24] MEDS ORDERED: METHADONE HCL 5 MG TABLET (FOR DETOX USE ONLY) PO SCH (06:00)
== END 2017-11-21 08:41 | disposition left against medical advice (07) | DRG 770 ==
LOC: YASAS 10:29 → Y6N 15:01
PROVIDERS: ADMIT Internal Medicine; ATTEND Internal Medicine
PROC: HZ2ZZZZ Detoxification Services for Substance Abuse Treatment (ICD-10-PCS; principal; 2017-11-19)
DX: F11.23 Opioid dependence with withdrawal (principal); F10.230 Alcohol dependence with withdrawal, uncomplicated; F41.0 Panic disorder [episodic paroxysmal anxiety]; F19.24 Other psychoactive substance dependence with psychoactive substance-induced mood disorder; K21.9 Gastro-esophageal reflux disease without esophagitis; N39.0 Urinary tract infection, site not specified; K59.00 Constipation, unspecified; Z91.010 Allergy to peanuts; Z91.018 Allergy to other foods
CPT/HCPCS: 36415; 80053; 81003; 81015; 85027; 86593; 93005; 93010

== ENCOUNTER 2018-09-21 12:22 | Inpatient (IN) | payer OTHER ==
[2018-09-21 13:03] VITALS: BMI 25.0
--- NOTE | 2018-09-21 16:36 | HP ---
COWS - Scale Resting Pulse: 1= CT 81-100 Sweatin= Chills/Flushing Restless Observation: 1= Difficult to Sit Still Pupil Size: 0= Normal to Room Light Bone or Joint Aches: 1= Mild Discomfort Runny Nose/ Eye Tearin= Runny Nose/Eyes GI Upset > 30mins: 1= Stomach Cramp Tremor Observation: 2= Slight Tremor Visible Yawning Observation: 2= >3x During Session Anxiety or Irritability: 2=Irritable/Anxious Goose Flesh Skin: 0=Smooth Skin COWS Score: 13 CIWA Score - CIWA Score Nausea/Vomitin Muscle Tremors: 3 Anxiety: 3 Agitation: 2 Paroxysmal Sweats: 2 Orientation: 0-Oriented Tacttile Disturbances: 0-None Auditory Disturbances: 0-None Visual Disturbances: 0-None Headache: 0-None Present CIWA-Ar Total Score: 13 Admission ROS S - HPI Chief Complaint: "I finally got a job, I want to clean up and stop using" Allergies/Adverse Reactions: Allergies Allergy/AdvReac Type Severity Reaction Status Date / Time No Known Drug Allergies Allergy Verified 09/21/18 16:02 History of Present Illness: 32 y/o female with a long hx of substance abuse presents requesting detox from heroin and cocaine. Pt was last here in Nov 2017 and states she has been "doing things I am not supposed to be doing". Utox positive for Fentanyl and oxy, but pt denies using same. Hx of anxiety (not on meds anymore). Denies SI Pt c/o lower abdominal pain with Burning, states she has a hx of UTI for which she gets Bactrim, denies itching nor vag discharge. Informed pt the POC will be to wait on UA/U-cult since she endorses recuurent UTIs, pt verbalized agreement with plan - Ebola screening Have you traveled outside of the country in the last 21 days: No Have you had contact with anyone from an Ebola affected area: No Have you been sick,other than usual withdrawal symptoms: No Do you have a fever: No - Review of Systems Constitutional: Loss of Appetite, Changes in sleep EENT: reports: Blurred Vision (lost her glasses) Respiratory: reports: No Symptoms reported Cardiac: reports: No Symptoms Reported GI: reports: Constipated, Poor Appetite, Vomiting : reports: Burning, Urgency Musculoskeletal: reports: Back Pain Integumentary: reports: Other (swelling/skin tighteness to bilateral lower arms s/p IV drug use) Neuro: reports: Headache Endocrine: reports: No Symptoms Reported Hematology: reports: No Symptoms Reported Psychiatric: reports: Judgement Intact, Mood/Affect Appropiate, Orientated x3 Other Systems: Reviewed and Negative Patient History - Patient Medical History Hx Anemia: No Hx Asthma: No Hx Chronic Obstructive Pulmonary Disease (COPD): No Hx Cancer: No Hx Cardiac Disorders: No Hx Congestive Heart Failure: No Hx Hypertension: No Hx Hypercholesterolemia: No Hx Pacemaker: No HX Cerebrovascular Accident: No Hx Seizures: No Hx Dementia: No Hx Diabetes: No Hx Gastrointestinal Disorders: Yes (Diverticulitis) Hx Liver Disease: No Hx Genitourinary Disorders: No Hx Sexually Transmitted Disorders: No Hx Renal Disease (ESRD): No Hx Thyroid Disease: No Hx Human Immunodeficiency Virus (HIV): No (negative, requesting testing) Hx Hepatitis C: No (negative) Hx Depression: Yes (On meds) Hx Suicide Attempt: No (Denies) Hx Bipolar Disorder: No Hx Schizophrenia: No - Patient Surgical History Past Surgical History: Yes Hx Neurologic Surgery: No Hx Cataract Extraction: No Hx Cardiac Surgery: No Hx Lung Surgery: No Hx Breast Surgery: No Hx Breast Biopsy: No Hx Abdominal Surgery: Yes (LIPOSUCTION IN 2004 AND 2007) Hx Appendectomy: No Hx Cholecystectomy: No Hx Genitourinary Surgery: No Hx Section: No Hx Orthopedic Surgery: No Anesthesia Reaction: No - PPD History Previous Implant?: No Documented Results: Negative w/proof Implanted On Prior [facility] Admission?: Yes Date: 07/20/17 PPD to be Administered?: Yes - Reproductive History Patient is a Female of Child Bearing Age (11 -55 yrs old): Yes Last Menstrual Period: 08/16/18 Patient : No - Smoking Cessation Smoking history: Never smoked Have you smoked in the past 12 months: No Cigars Per Day: 0 Hx Chewing Tobacco Use: No - Substance & Tx. History Hx Alcohol Use: Yes Hx Substance Use: Yes Substance Use Type: Cocaine, Heroin Hx Substance Use Treatment: Yes - Substances Abused Heroin Route: Injection Frequency: Daily Amount used: 3-4 bags Age of first use: 30 Date of Last Use: 09/20/18 Cocaine Route: Injection Frequency: Daily Amount used: 0.5 gram Age of first use: 30 Date of Last Use: 09/20/18 Alcohol Route: Oral Frequency: Daily Amount used: 1-2 glasses of vodka Age of first use: 18 Date of Last Use: 09/20/18 Family Disease History - Family Disease History Family Disease History: CA: Father (Lung), Respiratory: Mother (COPD, Heroin/ cocaine ), Other: Brother (Drug use) Admission Physical Exam [facility] - Vital Signs Vital Signs: Vital Signs - 24 hr 09/21/18 13:00 Temperature 97.2 F L Pulse Rate 82 Respiratory 17 Rate Blood Pressure 124/80 - Physical General Appearance: Yes: Mild Distress HEENTM: Yes: Within Normal Limits Respiratory: Yes: Lungs Clear, Normal Breath Sounds, No Respiratory Distress Neck: Yes: No masses,lesions,Nodules, Trachea in good position Breast: Yes: Breast Exam Deferred Cardiology: Yes: Regular Rate Abdominal: Yes: Normal Bowel Sounds, Non Tender, Flat Genitourinary: Yes: Burning, Frequency, Dysuria (Denies discharge, endorses lower abdominal pain) Back: Yes: Within Normal Limits, Normal Inspection Musculoskeletal: Yes: Within Normal Limits, full range of Motion, Gait Steady Extremities: Yes: Normal Capillary Refill, Swelling, Other (numbness to the skin ) Neurological: Yes: Within Normal Limits, 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, Fully Oriented, Alert, Motor Strength 5/5 Integumentary: Yes: Track Diego (b/l lower arms) - Diagnostic (1) Opioid dependence with withdrawal Current Visit: Yes Status: Acute (2) Alcohol dependence with uncomplicated withdrawal Current Visit: Yes Status: Acute (3) Anxiety Current Visit: Yes Status: Acute (4) Drug-induced mood disorder Current Visit: Yes Status: Chronic (5) Constipation Current Visit: Yes Status: Chronic Qualifiers: Constipation type: unspecified constipation type Qualified Code(s): K59.00 - Constipation, unspecified (6) Urinary tract infection Current Visit: Yes Status: Suspected Qualifiers: Encounter type: initial encounter Cleared for Admission [facility] - Detox or Rehab [facility] Level of Care: Medically Managed Detox Regimen/Protocol: Methadone/Librium [facility] Breath Alcohol Content Breath Alcohol Content: 0 Urine Pregancy Test - Result Urine Test Results: Negative- NO Line Present Urine Drug Screen - Results Drug Screen Negative: No Urine Drug Screen Results: MAME-Cocaine, OPI-Opiates, OXY-Oxycodone, FEN-Fentanyl
[2018-09-21] MEDS ORDERED: MENTHOL/PHENOL 1 EACH UD MM PRN (17:15)
[2018-09-21] MEDS ORDERED: METHADONE HCL 10 MG TABLET (FOR DETOX USE ONLY) PO ONE ×2 (17:15→23:00)
[2018-09-21] MEDS ORDERED: MAGNESIUM HYDROX 2400MG/30ML ORAL SUSPENSION 30 ML CUP PO PRN (17:15)
[2018-09-21] MEDS ORDERED: guaiFENesin/D-METHORPHAN HB 10 ML UNIT-DOSE CUPS PO PRN (17:15)
[2018-09-21] MEDS ORDERED: P-EPHED 60MG/TRIPROLIDI 2.5MG TABLET PO PRN (17:15)
[2018-09-21] MEDS ORDERED: MAG HYDROX/AL HYDROX/SIMETH 30 ML UNIT-DOSE CUP PO PRN (17:15)
[2018-09-21] MEDS ORDERED: ACETAMINOPHEN 325 MG TABLET (FP) PO PRN (17:15)
[2018-09-21] MEDS ORDERED: MAGNESIUM CITRATE 300 ML BOTTLE PO PRN (17:15)
[2018-09-21] MEDS ORDERED: LOPERAMIDE HCL 2 MG CAPSULE PO PRN (17:15)
--- NOTE | 2018-09-21 17:22 | PN ---
S Progress Note Note: Pt's b/l lower arms area are swollen and hard to touch s/p repeated iv drug use to the area. Pt states the area is numb aand has been like that for about four months. No signs of infection noted. Pt informed she will be referred to discuss with her PMD with a probable referral to ortho or plastics upon discharged, verbalized understanding.
[2018-09-21] MEDS: chlordiazePOXIDE HCL 25 MG CAPSULE PO SCH ×2 (18:49→22:50)
[2018-09-21] MEDS: chlordiazePOXIDE HCL 25 MG CAPSULE PO PRN (18:49)
[2018-09-21] MEDS: THIAMINE HCL 100 MG TABLET (FP) PO SCH (22:49)
[2018-09-21] MEDS: BACITRACIN/POLYMYXIN B SULFATE 15 GM TUBE TP SCH (22:50)
[2018-09-22] MEDS: chlordiazePOXIDE HCL 25 MG CAPSULE PO SCH ×4 (05:47→22:32)
[2018-09-22] MEDS: IBUPROFEN 400 MG TABLET (FP) PO PRN (05:48)
--- NOTE | 2018-09-22 08:50 | CONSULT ---
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 Patient is reporting Alcohol withdrawal symptoms and seeking detox. Substance Abuse History: Smoking history: Never smoked. Have you smoked in the past 12 months: No. Cigars Per Day: 0. Hx Chewing Tobacco Use: No. - Substance & Tx. History. Hx Alcohol Use: Yes. Hx Substance Use: Yes. Substance Use Type: Cocaine, Heroin. Hx Substance Use Treatment: Yes. - Substances Abused. Heroin. Route: Injection. Frequency: Daily. Amount used: 3-4 bags. Age of first use: 30. Date of Last Use: 09/20/18. Cocaine. Route: Injection. Frequency: Daily. Amount used: 0.5 gram. Age of first use: 30. Date of Last Use: 09/20/18. Alcohol. Route: Oral. Frequency: Daily. Amount used: 1-2 glasses of vodka. Age of first use: 18. Date of Last Use: 09/20/18 Medical History: UTI history Psychiatric History: Patient reports history of depression, no psychiatric hospitalization history, reports no psychiatric medications usage prior to admission. Denies suicidal, and homicidal history. Physical/Sexual Abuse/Trauma History: Denies Additional Comment: Observation. Detox Unit Care Mental Status Exam - Mental Status Exam Alert and Oriented to: Person Cognitive Function: Fair Patient Appearance: Unkempt Affect: Mood Congruent Patient Behavior: Sedated Speech Pattern: Delayed Voice Loudness: Mildly Soft/Quiet Thought Process: Circumstantial Thought Disorder: Being Controlled Hallucinations: Denies Suicidal Ideation: Denies Homicidal Ideation: Denies Insight/Judgement: Fair Sleep: Difficulty falling asleep Appetite: Fair Muscle strength/Tone: Mild Hypotonicity Gait/Station: Shuffling Additional Comments: Observation. Detox Unit Care Psychiatric Findings - Problem List ([place] 1, 2,3) (1) Alcohol dependence with uncomplicated withdrawal Current Visit: Yes Status: Acute (2) Opioid dependence with withdrawal Current Visit: Yes Status: Acute (3) Drug-induced mood disorder Current Visit: Yes Status: Chronic (4) Urinary tract infection Current Visit: Yes Status: Suspected Qualifiers: Encounter type: initial encounter - Initial Treatment Plan Initial Treatment Plan: Observation. Detox Unit Care
[2018-09-22] MEDS ORDERED: METHADONE HCL 10 MG TABLET (FOR DETOX USE ONLY) PO SCH (10:00)
[2018-09-22] MEDS: BACITRACIN/POLYMYXIN B SULFATE 15 GM TUBE TP SCH ×2 (10:13→22:41)
[2018-09-22] MEDS: PRENATAL VITAMINS W/ FOLIC ACID TABLET (FP) PO SCH (10:13)
[2018-09-22 11:17] LABS: HEMOGLOBIN 8.6 GM/dL (10.7-15.3); MCH 21.9 pg (25.7-33.7); MCHC 30.7 g/dl (32.0-36.0); MEAN CELL VOLUME 71.5 fl (80-96); PLATELET COUNT 378 K/MM3 (134-434); RBC 3.92 M/mm3 (3.60-5.2); RDW 17.5 % (11.6-15.6); WHITE BLOOD COUNT 6.7 K/mm3 (4.0-10.0)
[2018-09-22 11:39] LABS: ALBUMIN 3.1 g/dl (3.4-5.0); ALK PHOS 39 U/L (45-117); ANION GAP 6 MMOL/L (8-16); BILIRUBIN,TOTAL 0.7 mg/dL (0.2-1); BLOOD UREA NITROGEN 14 mg/dL (7-18); CALCIUM 8.3 mg/dL (8.5-10.1); CHLORIDE 109 mmol/L (98-107); CO2 26 mmol/L (21-32); CREATININE 0.8 mg/dL (0.55-1.3); GLUCOSE,RANDOM 76 mg/dL (74-106); POTASSIUM 4.3 mmol/L (3.5-5.1); SGOT/AST 22 U/L (15-37); SGPT/ALT 29 U/L (13-61); SODIUM 141 mmol/L (136-145); TOT PROT 6.8 g/dl (6.4-8.2)
--- NOTE | 2018-09-22 12:11 | PN ---
[facility] CIWA - CIWA Score Nausea/Vomitin-No Nausea/No Vomiting Muscle Tremors: 4-Moderate,w/Arms Extend Anxiety: 3 Agitation: 3 Paroxysmal Sweats: 3 Orientation: 0-Oriented Tacttile Disturbances: 0-None Auditory Disturbances: 0-None Visual Disturbances: 0-None Headache: 0-None Present CIWA-Ar Total Score: 13 BHS COWS - Scale Resting Pulse: 0= ME 80 or Below Sweatin=Flushed/Facial Moisture Restless Observation: 1= Difficult to Sit Still Pupil Size: 0= Normal to Room Light Bone or Joint Aches: 1= Mild Discomfort Runny Nose/ Eye Tearin= Nasal Congestion GI Upset > 30mins: 1= Stomach Cramp Tremor Observation of Outstretched Hands: 2= Slight Tremor Visible Yawning Observation: 2= >3x During Session Anxiety or Irritability: 2=Irritable/Anxious Goose Flesh Skin: 0=Smooth Skin COWS Score: 12 S Progress Note (SOAP) Subjective: interrupted sleep sweats shakes nausea body aches Objective: 09/22/18 12:10 Vital Signs Temperature 96.6 F L 09/22/18 09:45 Pulse Rate 72 09/22/18 09:45 Respiratory Rate 18 09/22/18 09:45 Blood Pressure 100/52 L 09/22/18 09:45 O2 Sat by Pulse Oximetry (%) Laboratory Tests 09/22/18 09/22/18 07:20 07:20 WBC 6.7 RBC 3.92 Hgb 8.6 L Hct 28.0 L MCV 71.5 L MCH 21.9 L MCHC 30.7 L RDW 17.5 H Plt Count 378 MPV 9.0 D Sodium 141 Potassium 4.3 Chloride 109 H Carbon Dioxide 26 Anion Gap 6 L BUN 14 Creatinine 0.8 Creat Clearance w eGFR > 60 Random Glucose 76 Calcium 8.3 L Total Bilirubin 0.7 AST 22 ALT 29 Alkaline Phosphatase 39 L Total Protein 6.8 Albumin 3.1 L rest of lab pending aaox3 ambulating no acute distress pt will continue with MVI daily as ordered Assessment: 09/22/18 12:12 withdrawal sx Plan: continue detox increase fluids f/u pending labs
[2018-09-22] MEDS: chlordiazePOXIDE HCL 25 MG CAPSULE PO PRN (16:33)
[2018-09-22] MEDS: CYCLOBENZAPRINE HCL 10 MG TABLET (FP) PO PRN ×2 (18:32→22:31)
[2018-09-22] MEDS: MELATONIN 5 MG TABLETS PO PRN (22:31)
[2018-09-22] MEDS: QUEtiapine FUMARATE 100 MG TABLET (FP) PO SCH (22:31)
[2018-09-22] MEDS: THIAMINE HCL 100 MG TABLET (FP) PO SCH (22:31)
[2018-09-23] MEDS: chlordiazePOXIDE HCL 25 MG CAPSULE PO SCH ×2 (06:13→10:29)
[2018-09-23] MEDS: PRENATAL VITAMINS W/ FOLIC ACID TABLET (FP) PO SCH (10:29)
[2018-09-23] MEDS: METHADONE HCL 5 MG TABLET (FOR DETOX USE ONLY) PO SCH (10:29)
[2018-09-23] MEDS: BACITRACIN/POLYMYXIN B SULFATE 15 GM TUBE TP SCH ×2 (10:29→22:11)
--- NOTE | 2018-09-23 12:36 | PN ---
[facility] CIWA - CIWA Score Nausea/Vomitin-No Nausea/No Vomiting Muscle Tremors: 4-Moderate,w/Arms Extend Anxiety: 4-Mod. Anxious/Guarded Agitation: 3 Paroxysmal Sweats: 3 Orientation: 0-Oriented Tacttile Disturbances: 0-None Auditory Disturbances: 0-None Visual Disturbances: 0-None Headache: 0-None Present CIWA-Ar Total Score: 14 BHS COWS - Scale Resting Pulse: 2= [place] 101-120 Sweatin=Flushed/Facial Moisture Restless Observation: 1= Difficult to Sit Still Pupil Size: 0= Normal to Room Light Bone or Joint Aches: 2= Severe Diffuse Aches Runny Nose/ Eye Tearin= Runny Nose/Eyes GI Upset > 30mins: 0= None Tremor Observation of Outstretched Hands: 2= Slight Tremor Visible Yawning Observation: 2= >3x During Session Anxiety or Irritability: 2=Irritable/Anxious Goose Flesh Skin: 0=Smooth Skin COWS Score: 15 S Progress Note (SOAP) Subjective: restless agitation anxiety sweats body aches interrupted sleep Objective: 09/23/18 12:35 Vital Signs Temperature 98.6 F 09/23/18 09:28 Pulse Rate 110 H 09/23/18 09:28 Respiratory Rate 16 09/23/18 09:28 Blood Pressure 101/67 09/23/18 09:28 O2 Sat by Pulse Oximetry (%) Laboratory Tests 09/22/18 09/22/18 09/22/18 07:20 07:20 07:20 WBC 6.7 RBC 3.92 Hgb 8.6 L Hct 28.0 L MCV 71.5 L MCH 21.9 L MCHC 30.7 L RDW 17.5 H Plt Count 378 MPV 9.0 D Sodium 141 Potassium 4.3 Chloride 109 H Carbon Dioxide 26 Anion Gap 6 L BUN 14 Creatinine 0.8 Creat Clearance w eGFR > 60 Random Glucose 76 Calcium 8.3 L Total Bilirubin 0.7 AST 22 ALT 29 Alkaline Phosphatase 39 L Total Protein 6.8 Albumin 3.1 L RPR Titer Nonreactive rest of labs aaox3 lying in bed no acute distress Assessment: 09/23/18 12:35 withdrawal sx Plan: continue detox increase fluids
--- NOTE | 2018-09-23 13:01 | EKG ---
Test Reason : Blood Pressure : / mmHG Vent. Rate : 076 BPM Atrial Rate : 076 BPM P-R Int : 152 ms QRS Dur : 082 ms QT Int : 396 ms P-R-T Axes : 057 064 058 degrees QTc Int : 445 ms NORMAL SINUS RHYTHM NORMAL ECG Confirmed by MD KATY, JAQUAN ([id number]) on 09/23/2018 1:01:21 PM Referred By: Frances Orellana Confirmed By:JAQUAN BURNS MD
[2018-09-23] MEDS: CYCLOBENZAPRINE HCL 10 MG TABLET (FP) PO PRN ×2 (16:58→22:10)
[2018-09-23] MEDS: chlordiazePOXIDE 5 MG CAPSULE PO SCH ×2 (16:59→22:11)
[2018-09-23] MEDS: QUEtiapine FUMARATE 100 MG TABLET (FP) PO SCH (22:10)
[2018-09-23] MEDS: THIAMINE HCL 100 MG TABLET (FP) PO SCH (22:10)
[2018-09-23] MEDS: IBUPROFEN 400 MG TABLET (FP) PO PRN (22:11)
[2018-09-23] MEDS: MELATONIN 5 MG TABLETS PO PRN (22:11)
[2018-09-24] MEDS: chlordiazePOXIDE 5 MG CAPSULE PO SCH ×2 (05:39→10:23)
[2018-09-24] MEDS: METHADONE HCL 5 MG TABLET (FOR DETOX USE ONLY) PO SCH (10:23)
[2018-09-24] MEDS: PRENATAL VITAMINS W/ FOLIC ACID TABLET (FP) PO SCH (10:23)
[2018-09-24] MEDS: BACITRACIN/POLYMYXIN B SULFATE 15 GM TUBE TP SCH ×2 (10:24→22:01)
--- NOTE | 2018-09-24 10:42 | PN ---
S Progress Note Note: pt states she doesn't drink alcohol and is not an alcoholic. she only drank 1-2 glasses of vodka and doesn't have an alcohol problem. Her problem is heroin. Pt wants to have her librium d/c and get less methadone because she wants to leave and go home. pt will be d/c tomorrow.
--- NOTE | 2018-09-24 10:43 | PN ---
BHS Progress Note (SOAP) Subjective: feeling better irritable sleepy Objective: 09/24/18 10:45 Vital Signs Temperature 97.5 F L 09/24/18 09:39 Pulse Rate 102 H 09/24/18 09:39 Respiratory Rate 18 09/24/18 09:39 Blood Pressure 100/67 09/24/18 09:39 O2 Sat by Pulse Oximetry (%) aaox3 ambulating no acute distress Assessment: 09/24/18 10:45 mild withdrawal sx Plan: librium d/c methadone decreased to end tomorrow with 10mg d/c in am
[2018-09-24] MEDS: hydrOXYzine PAMOATE 50 MG CAPSULE (FP) PO PRN ×2 (12:46→19:05)
[2018-09-24] MEDS ORDERED: chlordiazePOXIDE HCL 10 MG CAPSULE PO SCH (17:00)
[2018-09-24 17:06] LABS: URINE APPEARANCE CLOUDY; URINE BILIRUBIN NEGATIVE (<2.0 mg/dL); URINE COLOR YELLOW; URINE GLUCOSE (UA) NEGATIVE (NEGATIVE); URINE KETONE NEGATIVE (NEGATIVE); URINE LEUK ESTERASE 2+ (NEGATIVE); URINE NITRITE NEGATIVE (NEGATIVE); URINE PROTEIN NEGATIVE (NEGATIVE); URINE UROBILINOGEN NEGATIVE mg/dL (0.2-1.0)
[2018-09-24 17:16] LABS: CALCIUM OXALATE CRYSTALS FEW /hpf (NONE SEEN); EPI CELLS MODERATE /HPF (FEW); URINE BACTERIA MODERATE /hpf (NONE SEEN); URINE MUCUS RARE
[2018-09-24] MEDS: QUEtiapine FUMARATE 100 MG TABLET (FP) PO SCH (22:01)
[2018-09-24] MEDS: THIAMINE HCL 100 MG TABLET (FP) PO SCH (22:01)
[2018-09-24] MEDS: MELATONIN 5 MG TABLETS PO PRN (22:02)
[2018-09-25] MEDS ORDERED: METHADONE HCL 10 MG TABLET (FOR DETOX USE ONLY) PO ONE (06:00)
[2018-09-25 07:25] VITALS: BP 99/59; PULSE 87; TEMP 97
--- NOTE | 2018-09-25 08:28 | DS ---
[facility] Detox Discharge Summary Admission Date: 09/21/18 Discharge Date: 09/25/18 - History Present History: Alcohol Dependence, Opioid Dependence - Physical Exam Results Vital Signs: Vital Signs Temperature 97 F L 09/25/18 07:25 Pulse Rate 87 09/25/18 07:25 Respiratory Rate 16 09/25/18 07:25 Blood Pressure 99/59 L 09/25/18 07:25 O2 Sat by Pulse Oximetry (%) - Treatment Hospital Course: Detox Protocol Followed, Detoxed Safely, Responded well, Discharged Condition Good, Rehab Referral Accepted - Medication Discharge Medications: Ambulatory Orders Quetiapine Fumarate [Seroquel] 100 mg PO HS #30 tablet 09/22/18 Quetiapine Fumarate [Seroquel] 100 mg PO HS 30 Days tablet 09/22/18 - Diagnosis (1) Alcohol dependence with uncomplicated withdrawal Current Visit: Yes Status: Chronic (2) Anxiety Current Visit: Yes Status: Acute (3) Opioid dependence with withdrawal Current Visit: Yes Status: Chronic (4) Constipation Current Visit: Yes Status: Chronic Qualifiers: Constipation type: unspecified constipation type Qualified Code(s): K59.00 - Constipation, unspecified (5) Drug-induced mood disorder Current Visit: Yes Status: Chronic (6) Urinary tract infection Current Visit: Yes Status: Suspected Qualifiers: Encounter type: initial encounter - AMA Did Patient Leave Against Medical Advice: No (going home)
[2018-09-25] MEDS ORDERED: METHADONE HCL 10 MG TABLET (FOR DETOX USE ONLY) PO SCH (10:00)
[2018-09-26] MEDS ORDERED: METHADONE HCL 5 MG TABLET (FOR DETOX USE ONLY) PO SCH (06:00)
== END 2018-09-25 08:34 | disposition home or self-care (01) | DRG 773 ==
LOC: YASAS 12:22 → Y6N 16:36
PROC: HZ2ZZZZ Detoxification Services for Substance Abuse Treatment (ICD-10-PCS; principal; 2018-09-21)
DX: F11.23 Opioid dependence with withdrawal (principal); F10.230 Alcohol dependence with withdrawal, uncomplicated; F14.20 Cocaine dependence, uncomplicated; F41.9 Anxiety disorder, unspecified; K59.00 Constipation, unspecified; N39.0 Urinary tract infection, site not specified
CPT/HCPCS: 36415; 80053; 81003; 81015; 85027; 86593; 87086; 87186; 93005; 93010

== ENCOUNTER 2018-12-22 00:01 | Inpatient (IN) | payer OTHER ==
[2018-12-22 01:52] VITALS: BMI 22.6
--- NOTE | 2018-12-22 03:43 | PDOC ---
History of Present Illness - General Chief Complaint: Substance Abuse Stated Complaint: , ABD PAIN Time Seen by Provider: 12/22/18 03:33 History Source: Patient Exam Limitations: No Limitations - History of Present Illness Initial Comments: Pt is a 33 yo F, with history of polysubstance abuse, who is presenting from [facility] via EMS for medical evaluation. Pt went to [facility] this evening for detox from cocaine (intranasal) and heroin (IV, a "few bags per day"). Pt received urine toxicology (positive for cocaine, fentanyl, opiates, methadone, heroin, and alcohol) and a positive test, so pt was sent to the ER as [facility] does not accept patients. Pt currently complains of recent subjective chills, dysuria, urinary frequency and urgency over the past 4-5 days. She has tried taking OTC azo pills with minimal relief. Her last drug use was yesterday morning, and she normally has to stick herself with needles multiple times in the forearms. She also complains of redness, swelling, and pain over b/l forearms and "lumps in her veins through her arms". She does not inject in her neck or b/l LE. Pt denies any headache, vision changes, syncope, chest pain, palpitations, SOB, nausea/vomiting, abdominal pain, or diarrhea/ constipation. Social: Pts house foreclosed and she has been living in abandoned houses. Admits to drug use listed above, also occasional alcohol use. No cigarette smoking. Pt denies any recent travel or sick contacts. Surgical: no relevant history. Family: history of CA (breast/bladder). 12/22/18 22:04 Past History - Travel Traveled outside of the country in the last 30 days: No Close contact w/someone who was outside of country & ill: No - Past Medical History Allergies/Adverse Reactions: Allergies Allergy/AdvReac Type Severity Reaction Status Date / Time peanut Allergy Verified 12/22/18 02:49 Home Medications: Ambulatory Orders NK [No Known Home Medication] 12/22/18 Anemia: No Asthma: No Cancer: No Cardiac Disorders: No CVA: No COPD: No CHF: No Dementia: No Diabetes: No GI Disorders: Yes (Diverticulitis) Disorders: No HTN: No Hypercholesterolemia: No Kidney Stones: No Liver Disease: No Seizures: No Thyroid Disease: No - Surgical History Abdominal Surgery: Yes (LIPOSUCTION IN 2004 AND 2007) Appendectomy: No Cardiac Surgery: No Cholecystectomy: No Lung Surgery: No Neurologic Surgery: No Orthopedic Surgery: No - Reproductive History PID: No - Suicide/Smoking/Psychosocial Hx Smoking History: Never smoked Have you smoked in the past 12 months: No Cigars Per Day: 0 Information on smoking cessation initiated: No Hx Alcohol Use: No Drug/Substance Use Hx: No Substance Use Type: Cocaine, Heroin Hx Substance Use Treatment: Yes Review of Systems - Review of Systems Able to Perform ROS?: Yes Is the patient limited Macedonian proficient: No Constitutional: Yes: Chills, Weight Stable. No: Diaphoresis, Fever, Loss of Appetite, Weakness HEENTM: No: Recent change in vision, Nose Congestion, Throat Pain Respiratory: No: Cough, Orthopnea, Shortness of Breath Cardiac (ROS): No: Chest Pain, Edema, Irregular Heart Rate, Lightheadedness, Palpitations, Syncope, Chest Tightness ABD/GI: No: Constipated, Diarrhea, Nausea, Poor Appetite, Poor Fluid Intake, Vomiting : Yes: Burning, Dysuria, Frequency, Pain, Urgency, Other (no vaginal bleeding or discharge). No: Discharge, Flank Pain, Hematuria, Incontinence Musculoskeletal: No: Back Pain, Joint Pain, Muscle Weakness Integumentary: Yes: See HPI, Erythema (over b/l forearms and wrists). No: Rash Neurological: No: Headache, Numbness, Weakness, Unsteady Gait, Ataxia, Dizziness Psychiatric: Yes: Stressors, Other (polysubstance use). No: Sleep Pattern Change, Change in Appetite Endocrine: No: Increased Urine, Change in Weight Hematologic/Lymphatic: No: Anemia, Blood Clots, Easy Bleeding, Easy Bruising *Physical Exam - Vital Signs Last Vital Signs Temp Pulse Resp BP Pulse Ox 98.0 F 84 16 117/62 100 12/22/18 00:02 12/22/18 00:02 12/22/18 00:02 12/22/18 00:02 12/22/18 00:02 - Physical Exam Comments: PE showed pt alert and oriented, no lethargy or confusion. 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 Areas on b/l forearms and wrists with warmth and surrounding erythema, with obvious recent needle marroquin; no apparent streaking up the arms. HEENT WNL, no oral erythema, oral lesions, or nasal discharge. No localized LAD. Pt has tenderness to palpation over these areas.Clear heart and lung sounds, no JVD, b/l pedal edema, or heart murmur. Mild suprapubic tenderness to palpation, no rebound no guarding. No CVA tenderness. 12/22/18 21:04 General Appearance: Yes: Nourished, Appropriately Dressed. No: Apparent Distress HEENT: positive: EOMI, ROGER, Normal ENT Inspection, Normal Voice, Pharynx Normal. negative: Scleral Icterus (R), Scleral Icterus (L), Pharyngeal Erythema , Tonsillar Exudate, Tonsillar Erythema Neck: positive: Trachea midline, Normal Thyroid, Supple. negative: Tender, Rigid, Lymphadenopathy (R), Lymphadenopathy (L) Respiratory/Chest: positive: Lungs Clear, Normal Breath Sounds. negative: Chest Tender, Respiratory Distress, Accessory Muscle Use, Crackles, Wheezing Cardiovascular: positive: Regular Rhythm, Regular Rate, S1, S2. negative: Edema , JVD, Murmur Vascular Pulses: Carotid (R): 4+, Carotid (L): 4+ Gastrointestinal/Abdominal: positive: Normal Bowel Sounds, Tender (mild suprapubic tenderness), Flat, Soft (no fundal height appreciated). negative: Organomegaly, Pulsatile Mass, Distended, Guarding, Rebound Rectal Exam: positive: deferred Lymphatic: negative: Adenopathy, Tenderness Extremity: positive: Normal Capillary Refill, Normal Inspection, Normal Range of Motion, Pelvis Stable, Erythema. negative: Tender, Pedal Edema Integumentary: positive: Dry, Warm, Other (b/l forearms, see above). negative: Normal Color Neurologic: positive: school standards coach II-XII NML intact, Fully Oriented, Alert, Normal Mood/ Affect, Normal Response, Motor Strength 5/5. negative: Numbness, Sensory Deficit Moderate Sedation - Procedure Monitoring Vital Signs: Procedure Monitoring Vital Signs Temperature 98.0 F 12/22/18 00:02 Pulse Rate 84 12/22/18 00:02 Respiratory Rate 16 12/22/18 00:02 Blood Pressure 117/62 12/22/18 00:02 O2 Sat by Pulse Oximetry (%) 100 12/22/18 00:02 ED Treatment Course - LABORATORY CBC & Chemistry Diagram: 12/22/18 09:00 12/22/18 05:05 Medical Decision Making - Medical Decision Making Pt was seen at bedside, also will be seen by attending Dr. Saucedo. Pt presenting from [facility] via EMS for medical evaluation. Pt went to [facility] this evening for detox from cocaine (intranasal) and heroin (IV, a "few bags per day "). Pt received urine toxicology (positive for cocaine, fentanyl, opiates, methadone, heroin, and alcohol) and a positive test, so pt was sent to the ER as [facility] does not accept patients. Pt currently complains of recent subjective chills, dysuria, urinary frequency and urgency over the past 4-5 days. She has tried taking OTC azo pills with minimal relief. Her last drug use was yesterday morning, and she normally has to stick herself with needles multiple times in the forearms. She also complains of redness, swelling, and pain over b/l forearms and "lumps in her veins through her arms". She does not inject in her neck or b/l LE. Pt denies any headache, vision changes, syncope, chest pain, palpitations, SOB, nausea/vomiting, abdominal pain , or diarrhea/constipation. Vitals stable, pt afebrile. PE showed pt alert and oriented, no lethargy or confusion. 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 Areas on b/l forearms and wrists with warmth and surrounding erythema, with obvious recent needle marroquin; no apparent streaking up the arms. HEENT WNL, no oral erythema, oral lesions, or nasal discharge. No localized LAD. Pt has tenderness to palpation over these areas.Clear heart and lung sounds, no JVD, b/l pedal edema, or heart murmur. Mild suprapubic tenderness to palpation, no rebound no guarding. No CVA tenderness. Likely UTI considering recent dysuria/urgency/frequency. Forearms with localized masses and erythema appear to be cellulitic, may need US to r/o drainable areas/phlegmon/abscesses. Will consider abx coverage for both potential infections and risks. Ordered work-up including CBC, CMP, blood cultures, serum beta-hcg, UA, urine culture. Provided 650 mg PO tylenol, 4 mg SL zofran, and a banana bag for improvement of dehydration, pain, and nausea, as pt is in withdrawal. Will continue to reassess pt and monitor for symptomatic improvement. Pt was extremely difficult stick, as many of her veins are sclerosed or appear infected. labs sent and pending. 12/22/18 05:15 Providing 1 g IV ancef. Called phlebotomy for type and screen. 12/22/18 05:31 CBC: WBC 12.3, H/H 6.7/21.4 (anemia), MCV 66 -- likely nutrition/Fe-def anemia Coags WNL UA: LE 2+, WBC 5 Paging hospitalist for admission. 12/22/18 05:32 Hospitalist team accepted pt for admission. CMP generally WNL. Only pending beta-hcg quantitative. 12/22/18 05:51 Pt resting comfortably and was receiving IV banana bag at the time I left the department at 07:00. Hospitalist team had come to see the pt and orders were placed. Pt was awaiting bed upstairs. 12/22/18 20:58 *DC/Admit/Observation/Transfer Diagnosis at time of Disposition: Polysubstance abuse Anemia Qualifiers: Anemia type: iron deficiency Iron deficiency anemia type: unspecified iron deficiency Qualified Code(s): D50.9 - Iron deficiency anemia, unspecified Qualifiers: Weeks of gestation: unspecified Qualified Code(s): Z34.90 - Encounter for supervision of normal , unspecified, unspecified trimester Cellulitis Qualifiers: Site of cellulitis: extremity Site of cellulitis of extremity: upper extremity Laterality: unspecified laterality Qualified Code(s): L03.119 - Cellulitis of unspecified part of limb Urinary tract infection Qualifiers: Urinary tract infection type: site unspecified Hematuria presence: with hematuria Qualified Code(s): N39.0 - Urinary tract infection, site not specified - Discharge Dispostion Condition at time of disposition: Stable Decision to Admit order: Yes - Referrals - Patient Instructions - Post Discharge Activity
[2018-12-22] MEDS ORDERED: ONDANSETRON *ODT* 4 MG TABLET SL ONE (04:07)
[2018-12-22] MEDS ORDERED: ACETAMINOPHEN 325 MG TABLET (FP) PO ONE (04:07)
--- NOTE | 2018-12-22 04:12 | PDOC ---
Attending Attestation - Resident Resident Name: Adrianne Krishna - ED Attending Attestation I have performed the following: I have examined & evaluated the patient, The case was reviewed & discussed with the resident, I agree w/resident's findings & plan - HPI HPI: 12/22/18 05:15 Pt sent from [facility]; she went there for detox as she is a polysubstance abuser. However, she was found to be and they do not detox preg pts. So she was sent here for eval and soc work to look for preg detox. - Physicial Exam PE: 12/22/18 05:23 Pt has poor nutrition; she states that she lost her home to [facility]. Pt is afebrile Heart RRR; Lungs clear. Pt has bilateral forearm cellulitis/early abscess formation Pt has no abd pain. She doesn't complain of dysuria and she has no flank pain. No pitting edema of her extremities. - Medical Decision Making 12/22/18 05:26 Pt will be admitted for cellulitis; she is preg + and she has microcytic anemia ; she will be admitted for all.
[2018-12-22] MEDS ORDERED: ACETAMINOPHEN 325 MG TABLET (FP) ONE ×3 (04:17→20:47)
[2018-12-22] MEDS ORDERED: ONDANSETRON *ODT* 4 MG TABLET ONE (04:18)
[2018-12-22 05:09] LABS: HCG,QUALITATIVE URINE Positive
[2018-12-22 05:10] LABS: URINE APPEARANCE SLCLOUDY; URINE BILIRUBIN NEGATIVE (<2.0 mg/dL); URINE COLOR AMBER; URINE GLUCOSE (UA) NEGATIVE (NEGATIVE); URINE KETONE NEGATIVE (NEGATIVE); URINE LEUK ESTERASE 2+ (NEGATIVE); URINE NITRITE POSITIVE (NEGATIVE); URINE PROTEIN 1+ (NEGATIVE)
[2018-12-22 05:14] LABS: BASO % 1.1 % (0-2.0); EOS % 4.4 % (0-4.5); HEMATOCRIT 21.4 % (32.4-45.2); LYMPH % 15.9 % (8-40); MCH 20.9 pg (25.7-33.7); MCHC 31.4 g/dl (32.0-36.0); MEAN CELL VOLUME 66.6 fl (80-96); MEAN PLT VOLUME 8.3 fl (7.5-11.1); MONO % 10.6 % (3.8-10.2); PLATELET COUNT 372 K/MM3 (134-434); RBC 3.22 M/mm3 (3.60-5.2); RDW 17.3 % (11.6-15.6); WHITE BLOOD COUNT 12.3 K/mm3 (4.0-10.0)
[2018-12-22] MEDS ORDERED: FOLIC ACID INJECTION - 1 MG, THIAMINE HCL 100 MG, MULTIVIT INJECTION ADULT 10 ML in SOD... IVPB ONE (05:15)
[2018-12-22 05:18] LABS: EPI CELLS FEW /HPF (FEW); URINE BACTERIA MANY /hpf (NONE SEEN); URINE HYALINE CAST 14 /lpf; URINE MUCUS MANY
[2018-12-22 05:21] LABS: HEMOGLOBIN 6.7 GM/dL (10.7-15.3)
[2018-12-22 05:30] LABS: INR 0.92 (0.83-1.09); PROTHROMBIN TIME (PATIENT) 10.9 SEC (9.7-13.0)
[2018-12-22] MEDS ORDERED: CEFAZOLIN 1 GM in DEXTROSE 5%-WATER - 50 ML IVPB ONE (05:31)
[2018-12-22] MEDS ORDERED: CEFAZOLIN 1 GM/D5W 1 GM/50 ML BAG ONE ×2 (05:40→14:27)
[2018-12-22 05:48] LABS: ALBUMIN 2.5 g/dl (3.4-5.0); ALK PHOS 49 U/L (45-117); ANION GAP 8 MMOL/L (8-16); BILIRUBIN,TOTAL 0.2 mg/dL (0.2-1); BLOOD UREA NITROGEN 12 mg/dL (7-18); CALCIUM 8.1 mg/dL (8.5-10.1); CHLORIDE 105 mmol/L (98-107); CO2 23 mmol/L (21-32); CREATININE 0.7 mg/dL (0.55-1.3); GLUCOSE,RANDOM 79 mg/dL (74-106); POTASSIUM 3.9 mmol/L (3.5-5.1); SGOT/AST 24 U/L (15-37); SGPT/ALT 24 U/L (13-61); SODIUM 137 mmol/L (136-145); TOT PROT 6.5 g/dl (6.4-8.2)
[2018-12-22] MEDS: PRENATAL VITAMINS W/ FOLIC ACID TABLET (FP) PO SCH (06:58)
--- NOTE | 2018-12-22 07:02 | HP ---
CHIEF COMPLAINT: opiate withdrawal, , cellulitis PCP: HISTORY OF PRESENT ILLNESS: 33 y/o F with PMH PCOS, frequent UTI's who presents to the ED from [facility] with opiate withdrawal sx, +, and b/l forearm cellulitis over the past week. As per pt, she was initially at [facility] for detox. yesterday; her urine was + for cocaine, fentanyl, opiates, and methadone. While there, she was found to be , thus she was sent to [facility] ED for management of opiate withdrawal. States that she last injected heroin into her b/l forearms yesterday AM, however she has noticed swelling and serous drainage from the area over the past wk. During this time, she also endorses myalgia, alternating sensation of fever and chills, nausea, as well as urinary frequency and dysuria. States that she took Azo to aid with her sx from her UTI. Denies PICKETT, SOB, chest pain or pressure, or changes in bowel function. ER course was notable for: (1) cefazolin (2) tylenol (3) zofran Recent Travel: denies PAST MEDICAL HISTORY: as above PAST SURGICAL HISTORY: two liposuctions (2008, 2011) Social History: house was foreclosed Smoking: denies Alcohol: socially; last drink - wine a week ago Drugs: injects 4 bags of heroin "frequently", 1g cocaine - snort, a few times a day Family History: both parents . hx lung CA, COPD. breast CA in grandmother. bladder CA in uncle Allergies peanut Allergy (Verified 12/22/18 02:49) HOME MEDICATIONS: Home Medications Medication Instructions Recorded NK [No Known Home Medication] 12/22/18 REVIEW OF SYSTEMS CONSTITUTIONAL: +chills, myalgias Absent: fever, diaphoresis, generalized weakness, malaise, loss of appetite, weight change HEENT: Absent: rhinorrhea, nasal congestion, throat pain, throat swelling, difficulty swallowing, mouth swelling, ear pain, eye pain, visual changes CARDIOVASCULAR: Absent: chest pain, syncope, palpitations, irregular heart rate, lightheadedness , peripheral edema RESPIRATORY: Absent: cough, shortness of breath, dyspnea with exertion, orthopnea, wheezing, stridor, hemoptysis GASTROINTESTINAL: +nausea Absent: abdominal pain, abdominal distension, vomiting, diarrhea, constipation, melena, hematochezia GENITOURINARY: +dysuria, frequency Absent: urgency, hesitancy, hematuria, flank pain, genital pain MUSCULOSKELETAL: +myalgia Absent: arthralgia, joint swelling, back pain, neck pain SKIN: Absent: rash, itching, pallor HEMATOLOGIC/IMMUNOLOGIC: Absent: easy bleeding, easy bruising, lymphadenopathy, frequent infections ENDOCRINE: Absent: unexplained weight gain, unexplained weight loss, heat intolerance, cold intolerance NEUROLOGIC: Absent: headache, focal weakness or paresthesias, dizziness, unsteady gait, seizure, mental status changes, bladder or bowel incontinence PSYCHIATRIC: Absent: anxiety, depression, suicidal or homicidal ideation, hallucinations. PHYSICAL EXAMINATION Vital Signs - 24 hr 12/22/18 00:02 Temperature 98.0 F Pulse Rate 84 Respiratory 16 Rate Blood Pressure 117/62 O2 Sat by Pulse 100 Oximetry (%) GENERAL: Resting in bed. Awake, alert, and fully oriented, in no acute distress. HEAD: Normal with no signs of trauma. EYES: Pupils equal, round and reactive to light, extraocular movements intact, sclera anicteric, conjunctiva clear. EARS, NOSE, THROAT: Ears normal, nares patent, oropharynx clear without exudates. Moist mucous membranes. NECK: Normal range of motion, supple LUNGS: Breath sounds equal, clear to auscultation bilaterally. No wheezes, and no crackles. No accessory muscle use. HEART: Regular rate and rhythm, normal S1 and S2 without murmur, rub or gallop. ABDOMEN: Soft, +diffusely tender to palpation, not distended, normoactive bowel sounds, no guarding, no rebound UPPER EXTREMITIES: sleeve tattoos both arms. 2+ radial pulses. +b/l track marroquin , with b/l forearm edema, erythema. without fluctuance or pus. no streaking LOWER EXTREMITIES: 2+ pt pulses, warm, well-perfused. No calf tenderness. No peripheral edema. NEUROLOGICAL: Cranial nerves II-XII intact. 5/5 motor strength UE, LE. sensation intact PSYCHIATRIC: Cooperative. Good eye contact. Laboratory Results 12/22/18 12/22/18 12/22/18 04:15 05:05 05:05 WBC 12.3 H Hgb 6.7 L* Hct 21.4 L D MCV 66.6 L Plt Count 372 ALT Beta HCG, Quant 82560.1 Urine Nitrite Positive Ur Leukocyte Esterase 2+ H Urine WBC (Auto) 5 12/22/18 05:05 Plt Count Sodium 137 Potassium 3.9 Chloride 105 Carbon Dioxide 23 BUN 12 Creatinine 0.7 Random Glucose 79 AST 24 ALT 24 Beta HCG, Quant ASSESSMENT/PLAN: 33 y/o F with PMH PCOS, frequent UTI's who presents to the ED from [facility] with opiate withdrawal sx, +, and b/l forearm cellulitis over the past week. #Opiate withdrawal -with mild withdrawal - COWS score 6. cont to follow, will tx supportively as -less likely with acute alc withdrawal as last drink reported >1 wk ago. however will c/w banana bag for now for electrolytes #B/l forearm cellulitis 2/2 IVDA -c/w cefazolin 1g IVPB q8h for now. category B -may need MRSA coverage as IVDA. however vanco contraindicated in -ID consult: Dr. Bunch -f/u blood, ucx #UTI -currently on cefazolin however may need additional agent, or change in order to account for gram (-) -f/u Ucx -F/u ID recs #Microcytic anemia -likely 2/2 iron deficiency from malnutrition. without active signs of bleeding -f/u iron studies. once returns, start supplement -current Hb 6.7 however does not appear symptomatic. will repeat hb and reassess if need transfusion #- 4-5 wks as per b-hcg -safety risk lead consult: Dr. Nieto -start on vitamins #F/E/N encourage PO intake continue to follow lytes regular diet #PPX SCD's, early ambulation #Dispo med-surg Visit type - Emergency Visit Emergency Visit: Yes ED Registration Date: 12/22/18 Care time: The patient presented to the Emergency Department on the above date and was hospitalized for further evaluation of their emergent condition. - New Patient This patient is new to me today: Yes Date on this admission: 12/22/18 - Critical Care Critical Care patient: No
[2018-12-22 07:28] LABS: ANISOCYTOSIS 2+
[2018-12-22 07:29] LABS: PLATELET ESTIMATE ADEQUATE
--- NOTE | 2018-12-22 07:51 | PN ---
Teaching Attending Note Name of Resident: Dominga Ballesteros ATTENDING PHYSICIAN STATEMENT I saw and evaluated the patient. I reviewed the resident's note and discussed the case with the resident. I agree with the resident's findings and plan as documented. SUBJECTIVE: This is a 33 year old woman with a history of iron deficiency anemia , PCOS, frequent UTIs who presented to [facility] yesterday for heroin and alcohol detox and was sent to the ED because she was found to be . At [facility], her urine tox screen was positive for cocaine, fentanyl, opiates, and Methadone. She says she feels tired and weak, has urinary urgency and burning with urination, nausea, chills, sweats, and body aches. She reports that she injects heroin into her arms, and for the last week, she has noticed swelling of her forearms. She says she has been sticking these areas with needles and removing pus. She reports her last drink was 1 week ago. OBJECTIVE: Vital Signs Period Temp Pulse Resp BP Sys/Lim Pulse Ox Last 24 Hr 98.0 F 84 16 117/62 100 HEART: S1S2, RRR LUNGS: Clear ABDOMEN: Soft, non-tender, non-distended, normal BS EXTREMITIES: No edema. Focal areas of induration and erythema of both forearms with no drainage Laboratory Tests 12/22/18 12/22/18 12/22/18 04:15 05:05 05:05 WBC 12.3 H RBC 3.22 L Hgb 6.7 L* Hct 21.4 L D MCV 66.6 L MCH 20.9 L MCHC 31.4 L RDW 17.3 H Plt Count 372 MPV 8.3 Absolute Neuts (auto) 8.4 H Neutrophils % 68.0 Lymphocytes % 15.9 D Monocytes % 10.6 H Eosinophils % 4.4 Basophils % 1.1 Nucleated RBC % 0 PT with INR INR Sodium Potassium Chloride Carbon Dioxide Anion Gap BUN Creatinine Creat Clearance w eGFR Random Glucose Calcium Total Bilirubin AST ALT Alkaline Phosphatase Total Protein Albumin Beta HCG, Quant 37912.1 Urine Color Rossy Urine Appearance Slcloudy Urine pH 5.0 Ur Specific [place] 1.029 Urine Protein 1+ H Urine Glucose (UA) Negative Urine Ketones Negative Urine Blood Negative Urine Nitrite Positive Urine Bilirubin Negative Urine Urobilinogen 2.0 H Ur Leukocyte Esterase 2+ H Urine WBC (Auto) 5 Urine RBC (Auto) None Ur Epithelial Cells Few Urine Bacteria Many Hyaline Casts 14 Urine Mucus Many Urine HCG, Qual Positive Blood Type Antibody Screen 12/22/18 12/22/18 12/22/18 05:05 05:05 05:50 WBC RBC Hgb Hct MCV MCH MCHC RDW Plt Count MPV Absolute Neuts (auto) Neutrophils % Lymphocytes % Monocytes % Eosinophils % Basophils % Nucleated RBC % PT with INR 10.90 INR 0.92 Sodium 137 Potassium 3.9 Chloride 105 Carbon Dioxide 23 Anion Gap 8 BUN 12 Creatinine 0.7 Creat Clearance w eGFR > 60 Random Glucose 79 Calcium 8.1 L Total Bilirubin 0.2 AST 24 ALT 24 Alkaline Phosphatase 49 Total Protein 6.5 Albumin 2.5 L Beta HCG, Quant Urine Color Urine Appearance Urine pH Ur Specific [place] Urine Protein Urine Glucose (UA) Urine Ketones Urine Blood Urine Nitrite Urine Bilirubin Urine Urobilinogen Ur Leukocyte Esterase Urine WBC (Auto) Urine RBC (Auto) Ur Epithelial Cells Urine Bacteria Hyaline Casts Urine Mucus Urine HCG, Qual Blood Type A POSITIVE Antibody Screen Negative Home Medications Medication Instructions Recorded NK [No Known Home Medication] 12/22/18 ASSESSMENT AND PLAN: This is a 33 year old woman with a history of iron deficiency anemia, PCOS, frequent UTIs who presented to the ED from [facility] for heroin and alcohol detox after being found to be . 1. Cellulitis and possible abscesses of both forearms - Ancef given in ED - will continue for now - US of soft tissues - ID consult for antibiotic choice 2. UTI - Ancef given in ED - will continue for now - Follow up urine culture 3. Opiate dependence with withdrawal - Detox consult - Symptomatic treatment and supportive care for now 4. Continuous alcohol dependence - No evidence of withdrawal at this time 5. - Start pre-daniella vitamins - Ob consult 6. Anemia, microcytic - Chronic, secondary to iron deficiency - Patient reports having history of heavy menses - Check iron studies - Repeat hemoglobin - would transfuse if hgb<7 7. PCOS
--- NOTE | 2018-12-22 10:24 | PN ---
<Timmy Fay - Last Filed: 12/22/18 13:23> Physical Exam: Update: Rpt CBC with 7.1 Hgb informed by lab. Will watch and iron supplement for now SUBJECTIVE: Pt admitted from [facility] due to and suspected forearm abscesses after recent use (~2days prior) of heroin. Pt was initially triaged at Detox at [facility] for wish to detox from heroin and cocaine. Pt was sent to our ED due to suspected abscesses and due to a screening HCG positivity. Pt's HCG level was confirmed here and pt was admitted for IV ABX and further monitoring. Pt currently has no pain on her arms, however describes using needles from a clean needle program for her most recent use 2 days prior. Pt states that this time when she was using pus was drained out after the needle was removed. Pt also reports not knowing about her until her tests came back positive. She denies any fever/chills, diarrhea/constipation, CP/ discomfort, abdominal pain at this point. Pt does endorse feeling like she is withdrawing at this point and endorses some cold sweats however her symptoms are tolerable at this point. OBJECTIVE: Vital Signs Period Temp Pulse Resp BP Sys/Ilm Pulse Ox Last 24 Hr 97.8 F-98.0 F 72-84 16-18 117-129/62-73 100-100 GENERAL: NAD, awake, alert, and fully oriented, alaying in bed HEENT: NC/AT, EOMI, BESSY, sclera anicteric, no oral ulcerations, plaques or erythema noted, MMM, no conjunctival or mucosal pallor noted NECK: No JVD. LUNGS: CTA bilaterally, no wheezes, no crackles, no accessory muscle use. HEART: RRR, S1, S2 without murmur ABDOMEN: Soft, nontender, nondistended, normoactive bowel sounds, no guarding, no hepatomegaly via palpation, gravid uterus not appreciated on palpation. RECTAL: Refused EXTREMITIES: L 2x2cm area of induration and fluctuance upon palpation of posterior forearm, R 1x1.5 area of fluctuance near distal forearm, no pain upon palpation, no erythema, needle stick noted, no peripheral edema, distal pulses 2 + throughout. NEUROLOGICAL: boulevard glassware replacer II through XII grossly intact. Upper extremity strength 5/5 throughout all [place] with sensation symmetrical bilaterally. Normal speech, gait not observed. PSYCH: Normal mood, normal affect. SKIN: Warm, dry, normal turgor, see EXT exam, no rashs currently, tattoos on b/ l forearms noted with track marroquin noted. Laboratory Results - last 24 hr 12/22/18 12/22/18 12/22/18 04:15 05:05 05:05 WBC 12.3 H RBC 3.22 L Hgb 6.7 L* Hct 21.4 L D MCV 66.6 L MCH 20.9 L MCHC 31.4 L RDW 17.3 H Plt Count 372 MPV 8.3 Absolute Neuts (auto) 8.4 H Neutrophils % 68.0 Lymphocytes % 15.9 D Monocytes % 10.6 H Eosinophils % 4.4 Basophils % 1.1 Nucleated RBC % 0 Hypochromia 3+ Platelet Estimate Adequate Platelet Comment Giant platelets Polychromasia 2+ Poikilocytosis 2+ Anisocytosis 2+ Microcytosis 2+ PT with INR INR Sodium Potassium Chloride Carbon Dioxide Anion Gap BUN Creatinine Creat Clearance w eGFR Random Glucose Calcium Ferritin Total Bilirubin AST ALT Alkaline Phosphatase Total Protein Albumin Beta HCG, Quant 23147.1 Urine Color Rossy Urine Appearance Slcloudy Urine pH 5.0 Ur Specific [place] 1.029 Urine Protein 1+ H Urine Glucose (UA) Negative Urine Ketones Negative Urine Blood Negative Urine Nitrite Positive Urine Bilirubin Negative Urine Urobilinogen 2.0 H Ur Leukocyte Esterase 2+ H Urine WBC (Auto) 5 Urine RBC (Auto) None Ur Epithelial Cells Few Urine Bacteria Many Hyaline Casts 14 Urine Mucus Many Urine HCG, Qual Positive Blood Type Antibody Screen 12/22/18 12/22/18 05:05 05:05 WBC RBC Hgb Hct MCV MCH MCHC RDW Plt Count MPV Absolute Neuts (auto) Neutrophils % Lymphocytes % Monocytes % Eosinophils % Basophils % Nucleated RBC % Hypochromia Platelet Estimate Platelet Comment Polychromasia Poikilocytosis Anisocytosis Microcytosis PT with INR 10.90 INR 0.92 Sodium 137 Potassium 3.9 Chloride 105 Carbon Dioxide 23 Anion Gap 8 BUN 12 Creatinine 0.7 Creat Clearance w eGFR > 60 Random Glucose 79 Calcium 8.1 L Ferritin 26.6 Total Bilirubin 0.2 AST 24 ALT 24 Alkaline Phosphatase 49 Total Protein 6.5 Albumin 2.5 L Beta HCG, Quant Urine Color Urine Appearance Urine pH Ur Specific [place] Urine Protein Urine Glucose (UA) Urine Ketones Urine Blood Urine Nitrite Urine Bilirubin Urine Urobilinogen Ur Leukocyte Esterase Urine WBC (Auto) Urine RBC (Auto) Ur Epithelial Cells Urine Bacteria Hyaline Casts Urine Mucus Urine HCG, Qual Blood Type Antibody Screen Active Medications Generic Name Dose Route Start Last Admin Trade Name Yasmin PRN Reason Stop Dose Admin Folic Acid 1 mg/ Thiamine HCl 1,000 mls @ 125 mls/hr 12/22/18 05:15 12/22/18 05:38 100 mg/ Multivitamins/Minerals IVPB 12/22/18 13:14 125 mls/hr 10 ml/ Sodium Chloride ONCE ONE Administration Cefazolin Sodium 1 gm in 50 mls @ 100 mls/hr 12/22/18 14:00 Ancef 1 Gm Premixed Ivpb - IVPB TID LALO Multivit/Folic Acid/Iron 1 tab 12/22/18 06:45 12/22/18 06:58 Vitamins (Sjr) - PO 1 tab DAILY LALO Administration ASSESSMENT/PLAN: Upper extremity abscesses 2/2 to heroin Microcytic anemia Polysubstance abuse PCOS --Cefazolin given, however will need MRSA coverage (vanc contraindicated in ) --ID consulted for guidance --Possibility of clindamycin however medication is Class B --Pt afebrile and with minimal leukocytosis at this point --Surgery consulted for possible I&D of abscess b/l --Upper extremity b/l US noted to have hypoechoic areas suspected of phlegmon --Rpt CBC, pt without symptoms currently and suspect long-standing iron deficiency anemia without supplementation --If repeat remains lower than 7.0 will transfuse 1PRBC --Iron studies pending however will most likely recommend iron supplementation on an outpatient basis --Detox specialist consulted; currently supportive care --Pt would still like to go to detox center if abscesses are resolved --Banana bag with multivitamins given in ED -- vitamins ordered to continue FEN: Fluids: Encourage PO as much as possible Electrolyte abnormalities: None Nutrition: Regular diet PPX: DVT - SCDs and early ambulation for now GI - Not indicated currently Dispo: Continue with hospital level of care Case discussed with Dr. Jayce Fay, DO - IM PGY-2 Visit type - Emergency Visit Emergency Visit: Yes ED Registration Date: 12/22/18 Care time: The patient presented to the Emergency Department on the above date and was hospitalized for further evaluation of their emergent condition. - New Patient This patient is new to me today: Yes Date on this admission: 12/22/18 - Critical Care Critical Care patient: No <Deep Eduardo - Last Filed: 12/22/18 18:10> Physical Exam: Attending Note Patient seen and examined by me. 33 year old female with history of IVDU presented to [facility] for detox, found to be with possible abscesses bilateral forearms. Afebrile/Hemodynamically Stable. Upper Extremity US - Phlegmon. On Cefazolin. Surgery and ID consulted. Displays some withdrawal symptoms. Addiction Medicine consulted. HCG positive - OB consulted. Anemia, likely iron deficiency. rpt Hb > 7. No evidence of blood loss. Will monitor.
--- NOTE | 2018-12-22 11:08 | EKG ---
Test Reason : Blood Pressure : / mmHG Vent. Rate : 077 BPM Atrial Rate : 077 BPM P-R Int : 152 ms QRS Dur : 080 ms QT Int : 428 ms P-R-T Axes : 066 057 051 degrees QTc Int : 484 ms NORMAL SINUS RHYTHM POSSIBLE LEFT ATRIAL ENLARGEMENT PROLONGED QT ABNORMAL ECG WHEN COMPARED WITH ECG OF 21-SEP-2018 18:30, NO SIGNIFICANT CHANGE WAS FOUND Confirmed by CURT CRAMER, SHAUN ([id number]) on 12/22/2018 11:08:15 AM Referred By: Confirmed By:SHAUN ELIAS MD
[2018-12-22 12:19] LABS: BASO % 0.8 % (0-2.0); EOS % 5.1 % (0-4.5); HEMATOCRIT 22.5 % (32.4-45.2); HEMOGLOBIN 7.1 GM/dL (10.7-15.3); LYMPH % 16.5 % (8-40); MCH 21.1 pg (25.7-33.7); MCHC 31.6 g/dl (32.0-36.0); MEAN CELL VOLUME 66.9 fl (80-96); MEAN PLT VOLUME 8.8 fl (7.5-11.1); MONO % 9.3 % (3.8-10.2); NEUT % 68.3 % (42.8-82.8); PLATELET COUNT 358 K/MM3 (134-434); RBC 3.36 M/mm3 (3.60-5.2); RDW 17.8 % (11.6-15.6)
[2018-12-22] MEDS ORDERED: SODIUM CHLORIDE 1,000 ML IV SCH (14:00)
[2018-12-22] MEDS: ACETAMINOPHEN 325 MG TABLET (FP) PO PRN ×2 (14:45→21:01)
--- NOTE | 2018-12-22 15:58 | CONSULT ---
- Consultation REQUESTING PROVIDER: Jayce CRAMER CONSULT REQUEST: We have been asked to surgically evaluate this patient for ev aluation and management of possible ABSSSI of the LUE PCP:Deep Eduardo MD HISTORY OF PRESENT ILLNESS: Swelling and tenderenss dorsum of proximal wrist L>R ; patient has a h/o substance abuse and injecting into areas in question. PMHx: substance abuse PSHx: ? Home Medications Medication Instructions Recorded NK [No Known Home Medication] 12/22/18 Allergies Allergy/AdvReac Type Severity Reaction Status Date / Time peanut Allergy Verified 12/22/18 02:49 REVIEW OF SYSTEMS: patient not cooperative with same PHYSICAL EXAM: GENERAL: Fully oriented, in no acute distress; poorly cooperative HEAD: Normal with no signs of trauma. EYES: sclera anicteric, conjunctiva clear. NECK: Normal ROM, supple without lymphadenopathy, JVD, or masses. ABDOMEN: Soft, nontender, not distended, normoactive bowel sounds, no guarding, no rebound, no masses. No organomegaly. MUSCULOSKELETAL: Normal ROM at all joints. No bony deformities or tenderness. No CVA tenderness. UPPER EXTREMITIES: 2+ pulses, warm, well-perfused. No cyanosis. Cap refill <2 seconds. No peripheral edema. LOWER EXTREMITIES: 2+ pulses, warm, well-perfused. No calf tenderness. No peripheral edema. NEUROLOGICAL: Normal speech, gait not observed. PSYCH: Minimally cooperative. Poor eye contact. Inappropriate mood and affect. SKIN: Warm, dry, normal turgor, b/l L>R fibrotic subcutaneous masses of the dorsum of both proximal wrist joints; no erythema; no fluctuance; ttp is present # nedle puntures are present. Vital Signs Temperature 97.8 F 12/22/18 08:43 Pulse Rate 72 12/22/18 08:43 Respiratory Rate 18 12/22/18 08:43 Blood Pressure 129/73 12/22/18 08:43 O2 Sat by Pulse Oximetry (%) 100 12/22/18 08:43 Lab Results WBC 9.0 K/mm3 (4.0-10.0) 12/22/18 09:00 RBC 3.36 M/mm3 (3.60-5.2) L 12/22/18 09:00 Hgb 7.1 GM/dL (10.7-15.3) L 12/22/18 09:00 Hct 22.5 % (32.4-45.2) L 12/22/18 09:00 MCV 66.9 fl (80-96) L 12/22/18 09:00 MCHC 31.6 g/dl (32.0-36.0) L 12/22/18 09:00 RDW 17.8 % (11.6-15.6) H 12/22/18 09:00 Plt Count 358 K/MM3 (134-434) 12/22/18 09:00 Sodium 137 mmol/L (136-145) 12/22/18 05:05 Potassium 3.9 mmol/L (3.5-5.1) 12/22/18 05:05 Chloride 105 mmol/L (98-107) 12/22/18 05:05 Carbon Dioxide 23 mmol/L (21-32) 12/22/18 05:05 Anion Gap 8 MMOL/L (8-16) 12/22/18 05:05 BUN 12 mg/dL (7-18) 12/22/18 05:05 Creatinine 0.7 mg/dL (0.55-1.3) 12/22/18 05:05 Random Glucose 79 mg/dL (74-106) 12/22/18 05:05 Calcium 8.1 mg/dL (8.5-10.1) L 12/22/18 05:05 Blood Type A POSITIVE 12/22/18 05:50 Antibody Screen Negative 12/22/18 05:50 INR 0.92 (0.83-1.09) 12/22/18 05:05 US reviewed IMP: subcutaneous masses; doubt abscess at this time; more c/w fibrosis and FB reaction PLAN: If collection is susoected advise cross sectional imaging; will f/u as needed. Daquan Fuentes MD FACS
[2018-12-22] MEDS: CEFAZOLIN 1 GM/D5W 1 GM/50 ML BAG IVPB SCH ×2 (17:34→21:33)
[2018-12-22] MEDS: PROMETHAZINE HCL 25 MG TABLET PO PRN (21:03)
[2018-12-23 04:12] LABS: SERUM IRON SATURATION 4 % (15-55); TOTAL IRON BINDING CAPACITY 458 ug/dL (250-450); UIBC 441 ug/dL (131-425)
[2018-12-23] MEDS: PROMETHAZINE HCL 25 MG TABLET PO PRN ×3 (04:56→18:42)
[2018-12-23] MEDS: ACETAMINOPHEN 325 MG TABLET (FP) PO PRN ×3 (05:21→18:12)
[2018-12-23] MEDS: CEFAZOLIN 1 GM/D5W 1 GM/50 ML BAG IVPB SCH ×2 (05:33→16:23)
[2018-12-23 07:52] LABS: BASO % 0.9 % (0-2.0); HEMATOCRIT 25.8 % (32.4-45.2); LYMPH % 12.7 % (8-40); MCH 20.8 pg (25.7-33.7); MEAN PLT VOLUME 8.6 fl (7.5-11.1); MONO % 7.6 % (3.8-10.2); NEUT % 76.8 % (42.8-82.8); PLATELET COUNT 432 K/MM3 (134-434); RBC 3.86 M/mm3 (3.60-5.2); RDW 17.7 % (11.6-15.6); WHITE BLOOD COUNT 12.4 K/mm3 (4.0-10.0)
[2018-12-23 08:05] LABS: ANION GAP 10 MMOL/L (8-16); BLOOD UREA NITROGEN 9 mg/dL (7-18); CALCIUM 8.5 mg/dL (8.5-10.1); CHLORIDE 106 mmol/L (98-107); CO2 21 mmol/L (21-32); CREATININE 0.6 mg/dL (0.55-1.3); GLUCOSE,RANDOM 90 mg/dL (74-106); PHOSPHOROUS 3.4 mg/dL (2.5-4.9); POTASSIUM 4.1 mmol/L (3.5-5.1); SODIUM 136 mmol/L (136-145)
[2018-12-23] MEDS ORDERED: PT OWN MED DRAWER 7, Y5N ONE ×3 (10:44→18:10)
[2018-12-23] MEDS: PRENATAL VITAMINS W/ FOLIC ACID TABLET (FP) PO SCH (10:59)
--- NOTE | 2018-12-23 11:05 | PN ---
Physical Exam: SUBJECTIVE: Patient seen and examined this AM. She is complaining of nausea and states that she is actively withdrawing. OBJECTIVE: Vital Signs Period Temp Pulse Resp BP Sys/Lim Pulse Ox Last 24 Hr 97.6 F-98.6 F 64-81 17-20 95-127/53-71 97-100 GENERAL: A&O, mild distress HEAD: Normocephalic, atraumatic. EYES: no scleral icterus EARS, NOSE, THROAT: oropharynx clear without exudates. Moist mucous membranes. LUNGS: CTA b/l, no crackles or wheezes HEART: Regular rate and rhythm, normal S1 and S2 without murmur ABDOMEN: Soft, nontender to palpation, normoactive bowel sounds EXTREMITIES: 2+ pulses, warm, well-perfused. No peripheral edema. NEUROLOGICAL: Cranial nerves II-XII grossly intact. Normal speech. PSYCHIATRIC: Cooperative. Good eye contact. Appropriate mood and affect. SKIN: Tattoos throughout, tract marroquin noted on b/l UE, indurated/elevated areas noted on b/l UE Laboratory Results - last 24 hr 12/22/18 12/22/18 12/23/18 05:05 09:00 07:00 WBC 9.0 12.4 H RBC 3.36 L 3.86 Hgb 7.1 L 8.0 L Hct 22.5 L 25.8 L MCV 66.9 L 67.0 L MCH 21.1 L 20.8 L MCHC 31.6 L 31.0 L RDW 17.8 H 17.7 H Plt Count 358 432 D MPV 8.8 8.6 Absolute Neuts (auto) 6.1 9.5 H Neutrophils % 68.3 76.8 Lymphocytes % 16.5 12.7 D Monocytes % 9.3 7.6 Eosinophils % 5.1 H 2.0 Basophils % 0.8 0.9 Nucleated RBC % 0 0 Sodium Potassium Chloride Carbon Dioxide Anion Gap BUN Creatinine Creat Clearance w eGFR Random Glucose Calcium Phosphorus Magnesium Iron 17 L TIBC 458 H Iron Saturation 4 L 12/23/18 07:00 WBC RBC Hgb Hct MCV MCH MCHC RDW Plt Count MPV Absolute Neuts (auto) Neutrophils % Lymphocytes % Monocytes % Eosinophils % Basophils % Nucleated RBC % Sodium 136 Potassium 4.1 Chloride 106 Carbon Dioxide 21 Anion Gap 10 BUN 9 Creatinine 0.6 Creat Clearance w eGFR > 60 Random Glucose 90 Calcium 8.5 Phosphorus 3.4 Magnesium 2.0 Iron TIBC Iron Saturation Active Medications Generic Name Dose Route Start Last Admin Trade Name Yasmin PRN Reason Stop Dose Admin Acetaminophen 650 mg 12/22/18 13:52 12/23/18 05:21 Tylenol - PO 650 mg Q4H PRN Administration FEVER Cefazolin Sodium 1 gm in 50 mls @ 100 mls/hr 12/22/18 14:00 12/23/18 05:33 Ancef 1 Gm Premixed Ivpb - IVPB Not Given TID [facility] Multivit/Folic Acid/Iron 1 tab 12/22/18 06:45 12/22/18 06:58 Vitamins (Sjr) - PO 1 tab DAILY LALO Administration Promethazine HCl 12.5 mg 12/22/18 18:27 12/23/18 04:56 Phenergan - PO 12.5 mg Q6H PRN Administration NAUSEA AND/OR VOMITING ASSESSMENT/PLAN: 33 y/o F with PMH PCOS, frequent UTI's admitted from [facility] with opiate withdrawal sx, +, and b/l forearm cellulitis over the past week. B/L forearm cellulitis -Surgery consult appreciated, no surgical intervention at this time -US noted with b/l phlegmon, no drainable fluid collection -Ancef 1 gm Q8 -ID Consulted, awaiting further recs, pt would likely need Vanco for MRSA coverage except she is Polysubstance Abuse with acute opiate withdrawal -Promethazine for nausea as QTc 484 -Detox/Addiction medicine consulted for further recs -Found positive on this admission -GAME TRAPPER Consulted, awaiting recommendations prior to further detox management -Transvaginal US pending UTI -2+ LE, WBC 5, recent symptoms -ID consulted, will await further recommendations DVT Prophylaxis -SCDs and early ambulation FEN -Fluids: None -Electrolytes: No electrolyte abnormalities, BMP in AM -Nutrition: Regular Diet Disposition Med/Surg Visit type - Emergency Visit Emergency Visit: Yes ED Registration Date: 12/22/18 Care time: The patient presented to the Emergency Department on the above date and was hospitalized for further evaluation of their emergent condition. - New Patient This patient is new to me today: Yes Date on this admission: 12/23/18 - Critical Care Critical Care patient: No
--- NOTE | 2018-12-23 15:54 | PN ---
Teaching Attending Note Name of Resident: Ted Longo ATTENDING PHYSICIAN STATEMENT I saw and evaluated the patient. I reviewed the resident's note and discussed the case with the resident. I agree with the resident's findings and plan as documented. SUBJECTIVE: Patient reports nausea and thinks she is withdrawing from opioids. OBJECTIVE: Vital Signs Period Temp Pulse Resp BP Sys/Lim Pulse Ox Last 24 Hr 97.6 F-98.6 F 64-81 17-20 95-127/53-71 97-100 HEART: S1S2, RRR LUNGS: Clear ABDOMEN: Soft, non-tender, non-distended, normal BS EXTREMITIES: No edema. Focal areas of induration and erythema of both forearms with no drainage Laboratory Results - last 24 hr 12/22/18 12/23/18 12/23/18 05:05 07:00 07:00 WBC 12.4 H RBC 3.86 Hgb 8.0 L Hct 25.8 L MCV 67.0 L MCH 20.8 L MCHC 31.0 L RDW 17.7 H Plt Count 432 D MPV 8.6 Absolute Neuts (auto) 9.5 H Neutrophils % 76.8 Lymphocytes % 12.7 D Monocytes % 7.6 Eosinophils % 2.0 Basophils % 0.9 Nucleated RBC % 0 Sodium 136 Potassium 4.1 Chloride 106 Carbon Dioxide 21 Anion Gap 10 BUN 9 Creatinine 0.6 Creat Clearance w eGFR > 60 Random Glucose 90 Calcium 8.5 Phosphorus 3.4 Magnesium 2.0 Iron 17 L TIBC 458 H Iron Saturation 4 L Current Medications Generic Name Dose Route Start Last Admin Trade Name Freq PRN Reason Stop Dose Admin Acetaminophen 650 mg 12/22/18 13:52 12/23/18 10:58 Tylenol - PO 650 mg Q4H PRN Administration FEVER Cefazolin Sodium 1 gm in 50 mls @ 100 mls/hr 12/22/18 14:00 12/23/18 05:33 Ancef 1 Gm Premixed Ivpb - IVPB Not Given TID LALO Multivit/Folic Acid/Iron 1 tab 12/22/18 06:45 12/23/18 10:59 Vitamins (Sjr) - PO 1 tab DAILY LALO Administration Promethazine HCl 12.5 mg 12/22/18 18:27 12/23/18 12:40 Phenergan - PO 12.5 mg Q6H PRN Administration NAUSEA AND/OR VOMITING ASSESSMENT AND PLAN: This is a 33 year old woman with a history of iron deficiency anemia, PCOS, frequent UTIs who presented to the ED from [facility] for heroin and alcohol detox after being found to be . 1. Cellulitis of both forearms, UTI - Continue Ancef - US shows possible phlegmons in both arms - Urine culture growing gram neg rods 3. Opiate dependence with withdrawal - Awaiting detox consult 4. Continuous alcohol dependence - No evidence of withdrawal 5. - Continue vitamins - Awaiting Ob consult 6. Iron deficiency anemia - Secondary to menorrhagia - Hemoglobin stable 7. PCOS
[2018-12-23 19:17] VITALS: BP 115/64; PULSE 90; TEMP 98.1
--- NOTE | 2018-12-23 19:35 | PN ---
Progress Note (short form) - Note Progress Note: ID CONSULT DICTATED CELLULITIS L FOREARM UTI 15W IUP WARM COMPRESSES KEFLEX 500MG PO Q6H
[2018-12-23] MEDS ORDERED: NALOXONE HCL 0.4 MG/ML VIAL ONE (19:39)
--- NOTE | 2018-12-23 19:46 | HOSP ---
Physical Examination Vital Signs: Vital Signs Temperature 98.1 F 12/23/18 18:00 Pulse Rate 90 12/23/18 18:00 Respiratory Rate 20 12/23/18 18:00 Blood Pressure 115/64 12/23/18 18:00 O2 Sat by Pulse Oximetry (%) 100 12/23/18 09:00 Labs: CBC, BMP 12/23/18 07:00 12/23/18 07:00 Hospitalist Encounter Assessment: condition 10 was called at 7:30- patient eloped with . patient refused to sign AMA form or speak to regulatory internship long term care social worker. Visit type - Emergency Visit Emergency Visit: Yes ED Registration Date: 12/22/18 Care time: The patient presented to the Emergency Department on the above date and was hospitalized for further evaluation of their emergent condition. - New Patient This patient is new to me today: No - Critical Care Critical Care patient: No
[2018-12-24] MEDS ORDERED: CEPHALEXIN MONOHYDRATE 500 MG CAPSULE (UD) PO SCH
--- NOTE | 2018-12-24 09:05 | CONS ---
DATE OF CONSULTATION: 12/23/2018 The patient is a 33-year-old female with a history of polysubstance abuse, evaluated for cellulitis of the left forearm. She had presented to detox for cocaine and heroin. She was found to be . She also complained of chills, urinary frequency, and erythema and swelling of the distal left forearm. [facility]. She was noted to have a cellulitis of the dorsal aspect of the left forearm. Sonogram was performed and showed phlegmon, no evidence of drainable collection. She denies any pain. She has been afebrile with a slightly elevated white blood cell count. Patient was empirically treated with cefazolin. PAST MEDICAL HISTORY: Positive for polysubstance abuse. Her HIV status is not documented. ALLERGIES: No known drug allergies. LABORATORY DATA: White count 12.5, hematocrit 25.8, platelet count 432, creatinine 0.6. Urinalysis: Five white cells. Blood cultures preliminarily negative. Urine culture: Lactose embedded linux developer. PHYSICAL EXAMINATION: General: She is uncooperative with exam, supine in bed, in no acute distress. Vital Signs: Temperature is 97.7, blood pressure 112/55, pulse 81, regular. Respiration 20 per minute. HEENT: Sclerae are anicteric. Cardiovascular: Heart sounds S1, S2. No murmur. Lungs: Clear. Examination of the Left Forearm: There is a 4 x 4-cm area of induration present on the dorsal aspect of the left forearm. It is slightly erythematous. There is no fluctuance, no crepitus, no lymphangitic streaking. No epitrochlear or axillary adenopathy palpable. IMPRESSION: 1. Cellulitis, left forearm, secondary to injection drug use. 2. Urinary tract infection. 3. Fifteen-week intrauterine . Advised warm compresses to left upper extremity. Empiric antibiotic coverage for skin and soft tissue as well as urinary tract infection with Keflex 500 mg p.o. every 6 hours, complete 7-day course. Local wound care. Detox and rehabilitation referral. PUBLIC HEALTH TECHNOLOGIST referral. Thank you for the kind referral. ALECIA KATE M.D. [id number]
== END 2018-12-23 20:16 | disposition left against medical advice (07) | DRG 566 ==
LOC: JER 00:01 → JERBED 05:55 → J5S 12-23 04:58
PROVIDERS: ADMIT Internal Medicine; ATTEND Internal Medicine
DX: O99.321 Drug use complicating pregnancy, first trimester (principal); L03.114 Cellulitis of left upper limb; E28.2 Polycystic ovarian syndrome; L03.113 Cellulitis of right upper limb; F11.23 Opioid dependence with withdrawal; D50.9 Iron deficiency anemia, unspecified; F10.20 Alcohol dependence, uncomplicated; N39.0 Urinary tract infection, site not specified; O99.311 Alcohol use complicating pregnancy, first trimester; O99.011 Anemia complicating pregnancy, first trimester; O23.41 Unspecified infection of urinary tract in pregnancy, first trimester
CPT/HCPCS: 36415; 76815-TC; 76882-TC-RT-FY; 80048; 80053; 81003; 81015; 82728; 83540; 83550; 83735; 84100; 84702; 84703; 85025; 85610; 86850; 86900; 86901; 87040; 87086; 87186; 93005; 93010; 99285-25; J7030; Q0162

== ENCOUNTER 2021-06-27 12:46 | Emergency (ER) | payer BC ==
[2021-06-27 13:05] VITALS: TEMP 97.3; BMI 32.8
[2021-06-27] MEDS ORDERED: ASPIRIN 81 MG CHEWABLE TABLETS PO ONE (13:17)
[2021-06-27] MEDS ORDERED: ONDANSETRON 4 MG/2 ML VIAL IVPUSH ONE (13:17)
[2021-06-27] MEDS ORDERED: ASPIRIN 81 MG CHEWABLE TABLETS ONE (13:49)
[2021-06-27] MEDS ORDERED: ONDANSETRON 4 MG/2 ML VIAL ONE (13:49)
[2021-06-27 15:02] LABS: BASO % 0.4 % (0-2.0); EOS % 0.2 % (0-4.5); HEMATOCRIT 39.4 % (32.4-45.2); HEMOGLOBIN 13.1 GM/dL (10.7-15.3); LYMPH % 7.5 % (8-40); MCH 27.8 pg (25.7-33.7); MCHC 33.2 g/dl (32.0-36.0); MEAN CELL VOLUME 83.6 fl (80-96); MEAN PLT VOLUME 8.5 fl (7.5-11.1); MONO % 5.5 % (3.8-10.2); NEUT % 86.4 % (42.8-82.8); PLATELET COUNT 380 10^3/uL (134-434); RBC 4.71 M/mm3 (3.60-5.2); RDW 15.6 % (11.6-15.6); WHITE BLOOD COUNT 14.6 K/mm3 (4.0-10.0)
[2021-06-27 15:09] VITALS: PULSE 107
[2021-06-27 15:11] LABS: CHLORIDE 107 mmol/L (98-107); SODIUM 139 mmol/L (136-145)
[2021-06-27 15:14] LABS: ANION GAP 13 MMOL/L (8-16); BLOOD UREA NITROGEN 19.1 mg/dL (7-18); CALCIUM 8.4 mg/dL (8.5-10.1); CO2 20 mmol/L (21-32)
[2021-06-27 15:15] LABS: ALBUMIN 3.4 g/dl (3.4-5.0); GLUCOSE,RANDOM 133 mg/dL (74-106)
[2021-06-27 15:17] LABS: SGPT/ALT 70 U/L (13-61)
[2021-06-27 15:19] LABS: BILIRUBIN,TOTAL 0.3 mg/dL (0.2-1); TOT PROT 7.5 g/dl (6.4-8.2)
[2021-06-27 15:20] LABS: ALK PHOS 92 U/L (45-117)
[2021-06-27 15:25] LABS: SGOT/AST 65 U/L (15-37)
[2021-06-27 16:57] VITALS: BP 110/79
== END 2021-06-27 16:35 ==
LOC: JER 12:46
PROC: 3E033GC Introduction of Other Therapeutic Substance into Peripheral Vein, Percutaneous Approach (ICD-10-PCS; principal; 2021-06-27)
DX: T50.901A Poisoning by unspecified drugs, medicaments and biological substances, accidental (unintentional), initial encounter (principal)
CPT/HCPCS: 36415; 71045-TC-FY; 80053; 84484; 84703; 85025; 93005; 93010; 99284-25